=== PATIENT | female | born 1945 | race Caucasian/White ===

== ENCOUNTER → 2016-03-04 | Outpatient (CLI) | payer OTHER, MEDICARE ==
[2016-03-04 13:36] LABS: BASO % 0.3 %; BASO ABS # 0.02 K/uL (0-0.2); COMPLETE YES; EOS % 1.7 %; HEMATOCRIT 41.6 % (37-47); IG% 0.1 %; LYMPH % 25.1 %; LYMPH ABS # 1.91 K/uL (1.2-3.4); MEAN CELL VOLUME 85.6 fL (80-100); MEAN CORPUSCULAR HEMOGLOBIN 28.6 pg (25-34); MEAN CORPUSCULAR HGB CONC 33.4 g/dl (32-36); MEAN PLATELET VOLUME 8.7 fL (7.4-10.4); MONO % 7.1 %; NEUT % 65.7 %; PLATELET COUNT 304 K/uL (130-400); RED BLOOD COUNT 4.86 M/uL (4.2-5.4)
[2016-03-04 14:03] LABS: ALT/SGPT 25 U/L (12-78); BLOOD UREA NITROGEN 14 mg/dl (7-18); BUN/CREATININE RATIO 22.4 (10-20); CARBON DIOXIDE 27 mmol/L (21-32); CHLORIDE 101 mmol/L (98-107); CHOLESTEROL 229 mg/dl (0-200); CREATININE 0.63 mg/dl (0.60-1.20); GLUCOSE 134 mg/dl (70-99); POTASSIUM 4.3 mmol/L (3.5-5.1); SODIUM 139 mmol/L (136-145)
[2016-03-04 14:14] LABS: ALB/GLOB RATIO 0.9 (0.9-2); ALKALINE PHOSPHATASE 117 U/L (45-117); AST/SGOT 19 U/L (15-37); HDL CHOLESTEROL 76 mg/dl; LDL CHOLESTEROL CALCULATED 132 mg/dl; TRIGLYCERIDES 106 mg/dl (0-150); VERY LOW DENSITY LIPOPROT CALC 21 mg/dl
[2016-03-04 14:32] LABS: ESTIMATED AVERAGE GLUCOSE 146 mg/dl; HA1C FLAG Normal (Normal)
--- NOTE | 2016-03-08 14:00 | CODING QUERY MEDICAL NECESSITY ---
CQSUPPORTING DIAGNOSIS NEEDED A supporting diagnosis is required for the test/procedure performed on this patient in order for us to be reimbursed by the patient's insurance. Please provide a supporting diagnosis for the following test/procedure listed below next to the test name along with your signature. *If there is no additional diagnosis for this patient that would support the following test/procedure please document that below next to the test/procedure. Test(s)/Procedure(s) that require a supporting diagnosis: DOS 03/04/16 VITAMINS AND METABOLIC FUNCTION- VITAMIN D Provider Signature: Date: Thank you Gela Danielson Health Information Management Once completed, please kindly fax back to [phone] For questions please call [phone]
== END | disposition home or self-care (01) ==
LOC: C.LABBC 11:16
PROVIDERS: ATTEND Internal Medicine
DX: E11.9 Type 2 diabetes mellitus without complications (principal); L40.9 Psoriasis, unspecified

== ENCOUNTER → 2016-06-07 | Outpatient (CLI) | payer OTHER, MEDICARE ==
[2016-06-07 17:23] LABS: RATIO 17.6 mcg/mg (0-30.0)
[2016-06-08 05:56] LABS: ESTIMATED AVERAGE GLUCOSE 131 mg/dl; HA1C FLAG Normal (Normal)
== END | disposition home or self-care (01) ==
LOC: C.LABBC 13:02
PROVIDERS: ATTEND Nurse Practitioner Family
DX: E11.9 Type 2 diabetes mellitus without complications (principal)

== ENCOUNTER → 2016-09-12 | Outpatient (CLI) | payer OTHER, MEDICARE ==
[2016-09-12 17:24] LABS: ESTIMATED AVERAGE GLUCOSE 143 mg/dl; HA1C FLAG Normal (Normal)
== END | disposition home or self-care (01) ==
LOC: C.LABBC 14:32
PROVIDERS: ATTEND Nurse Practitioner Family
DX: E11.9 Type 2 diabetes mellitus without complications (principal)

== ENCOUNTER → 2016-11-12 | Outpatient (CLI) | payer OTHER, MEDICARE | END | disposition home or self-care (01) | LOC: C.LABBC 14:38 | PROVIDERS: ATTEND Internal Medicine | DX: G25.81 Restless legs syndrome (principal) ==

== ENCOUNTER → 2016-12-02 | Outpatient (CLI) | payer OTHER, MEDICARE ==
[2016-12-02 17:15] LABS: BLOOD UREA NITROGEN 18 mg/dl (7-18); BUN/CREATININE RATIO 25.5 (10-20); CALCIUM 9.7 mg/dl (8.5-10.1); CARBON DIOXIDE 27 mmol/L (21-32); CHLORIDE 102 mmol/L (98-107); GLUCOSE 129 mg/dl (70-99); POTASSIUM 4.2 mmol/L (3.5-5.1); SODIUM 140 mmol/L (136-145)
== END | disposition home or self-care (01) ==
LOC: C.LABBC 13:54
PROVIDERS: ATTEND Internal Medicine
DX: E78.5 Hyperlipidemia, unspecified (principal)

== ENCOUNTER → 2016-12-13 | Outpatient (CLI) | payer OTHER, MEDICARE ==
[2016-12-13 14:14] LABS: ESTIMATED AVERAGE GLUCOSE 140 mg/dl; HA1C FLAG Normal (Normal)
== END | disposition home or self-care (01) ==
LOC: C.LABBC 11:34
PROVIDERS: ATTEND Nurse Practitioner Family
DX: E11.9 Type 2 diabetes mellitus without complications (principal)

== ENCOUNTER → 2017-05-09 | Outpatient (CLI) | payer OTHER, MEDICARE ==
[2017-05-09 11:35] LABS: BASO % 0.1 %; BASO ABS # 0.01 K/uL (0-0.2); EOS % 2.9 %; HEMATOCRIT 33.1 % (37-47); HEMOGLOBIN 10.7 g/dL (12.0-16.0); IG# 0.02 K/uL (0.00-0.02); LYMPH % 24.7 %; LYMPH ABS # 1.71 K/uL (1.2-3.4); MEAN CELL VOLUME 82.1 fL (80-100); MEAN CORPUSCULAR HEMOGLOBIN 26.6 pg (25-34); MEAN CORPUSCULAR HGB CONC 32.3 g/dl (32-36); MEAN PLATELET VOLUME 8.2 fL (7.4-10.4); MONO % 8.2 %; MONO ABS # 0.57 K/uL (0.11-0.59); NEUT % 63.8 %; NEUT ABS # 4.41 K/uL (1.4-6.5); PLATELET COUNT 399 K/uL (130-400); RED CELL DISTRIBUTION WIDTH CV 13.9 % (11.5-14.5); RED CELL DISTRIBUTION WIDTH SD 42.1 fL (36.4-46.3); WHITE BLOOD COUNT 6.92 K/uL (4.8-10.8)
[2017-05-09 12:00] LABS: HEMOGLOBIN A1C 7.2 % (4.5-5.6)
[2017-05-09 12:09] LABS: ALBUMIN 3.5 gm/dl (3.4-5.0); ALKALINE PHOSPHATASE 166 U/L (45-117); ALT/SGPT 53 U/L (12-78); AST/SGOT 28 U/L (15-37); BLOOD UREA NITROGEN 17 mg/dl (7-18); CALCIUM 9.6 mg/dl (8.5-10.1); CARBON DIOXIDE 28 mmol/L (21-32); CHOLESTEROL 184 mg/dl (0-200); CREATININE 0.75 mg/dl (0.60-1.20); GLUCOSE 110 mg/dl (70-99); LDL CHOLESTEROL CALCULATED 107 mg/dl; POTASSIUM 4.3 mmol/L (3.5-5.1); SODIUM 137 mmol/L (136-145); TOTAL PROTEIN 7.5 gm/dl (6.4-8.2)
== END | disposition home or self-care (01) ==
LOC: C.LABPBG 10:14
PROVIDERS: ATTEND Nurse Practitioner Family
DX: E11.9 Type 2 diabetes mellitus without complications (principal); L40.50 Arthropathic psoriasis, unspecified; Z11.59 Encounter for screening for other viral diseases

== ENCOUNTER → 2017-05-21 | Outpatient (CLI) | payer OTHER, MEDICARE ==
[2017-05-21 17:22] LABS: BASO % 0.3 %; BASO ABS # 0.02 K/uL (0-0.2); EOS % 3.6 %; EOS ABS # 0.26 K/uL (0-0.5); HEMATOCRIT 33.4 % (37-47); HEMOGLOBIN 10.7 g/dL (12.0-16.0); IG# 0.03 K/uL (0.00-0.02); LYMPH % 28.3 %; LYMPH ABS # 2.02 K/uL (1.2-3.4); MEAN CELL VOLUME 82.3 fL (80-100); MEAN CORPUSCULAR HEMOGLOBIN 26.4 pg (25-34); MEAN PLATELET VOLUME 8.4 fL (7.4-10.4); MONO % 9.2 %; MONO ABS # 0.66 K/uL (0.11-0.59); NEUT % 58.2 %; NEUT ABS # 4.16 K/uL (1.4-6.5); PLATELET COUNT 465 K/uL (130-400); RED CELL DISTRIBUTION WIDTH CV 14.3 % (11.5-14.5); WHITE BLOOD COUNT 7.15 K/uL (4.8-10.8)
== END | disposition home or self-care (01) ==
LOC: C.LABBC 12:56
PROVIDERS: ATTEND Internal Medicine
DX: R74.8 Abnormal levels of other serum enzymes (principal)

== ENCOUNTER 2017-07-08 08:54 | Inpatient (IN) | payer OTHER, MEDICARE ==
[2017-06-18 14:27] VITALS: BMI 33.0
[2017-06-18 15:46] LABS: BASO % 0.2 %; BASO ABS # 0.02 K/uL (0-0.2); EOS % 4.1 %; EOS ABS # 0.34 K/uL (0-0.5); HEMATOCRIT 34.5 % (37-47); HEMOGLOBIN 11.3 g/dL (12.0-16.0); IG# 0.02 K/uL (0.00-0.02); LYMPH % 27.2 %; LYMPH ABS # 2.23 K/uL (1.2-3.4); MEAN CELL VOLUME 80.8 fL (80-100); MEAN CORPUSCULAR HEMOGLOBIN 26.5 pg (25-34); MEAN CORPUSCULAR HGB CONC 32.8 g/dl (32-36); MEAN PLATELET VOLUME 8.1 fL (7.4-10.4); MONO % 6.2 %; MONO ABS # 0.51 K/uL (0.11-0.59); NEUT % 62.1 %; NEUT ABS # 5.08 K/uL (1.4-6.5); PLATELET COUNT 382 K/uL (130-400); RED CELL DISTRIBUTION WIDTH CV 14.4 % (11.5-14.5); RED CELL DISTRIBUTION WIDTH SD 41.9 fL (36.4-46.3)
--- NOTE | 2017-06-18 15:47 | DIAGNOSTIC IMAGING REPORT ---
CHEST 2 VIEWS ROUTINE CLINICAL HISTORY: Preoperative chest COMPARISON STUDY: No previous studies for comparison. FINDINGS: The cardiac and mediastinal contours are normal. There is no evidence of focal pulmonary consolidation. There is no evidence of failure. No pleural effusions are visualized.[ IMPRESSION: No active disease in the chest. Electronically signed by: Cristian Nam M.D. 06/18/2017 3:46 PM Dictated Date/Time: 06/18/2017 3:46 PM
[2017-06-18 15:54] LABS: CALCIUM 9.7 mg/dl (8.5-10.1); CREATININE 0.78 mg/dl (0.60-1.20); POTASSIUM 3.8 mmol/L (3.5-5.1); PTT PATIENT 25.4 SECONDS (21.0-31.0)
--- NOTE | 2017-07-07 17:28 | HISTORY & PHYSICAL EXAMINATION ---
DATE OF ADMISSION: 07/08/2017 CHIEF COMPLAINT: Primary osteoarthritis of the left knee. HISTORY OF PRESENT ILLNESS: Kimberly is a pleasant 72-year-old female who has been dealing with a several year history of bilateral knee pain with the left knee worse than the right. X-rays and clinical examination were diagnostic for primary osteoarthritis of the left knee. After failing extensive conservative treatment, she has elected to proceed with a left total knee arthroplasty. PAST MEDICAL HISTORY: Significant for non-insulin dependent diabetes, hypertension. PAST SURGICAL HISTORY: Denies. ALLERGIES: None. MEDICATIONS: Include lisinopril, indapamide, metformin, glimepiride, and ropinirole. FAMILY HISTORY: Significant for glioblastoma of the brain. SOCIAL HISTORY: The patient is , has 1 child, never drinks, is mildly active and lives in a house with her , he was able to take care of her. REVIEW OF SYSTEMS: She complains of left knee pain. All other pertinent review of systems are negative. PHYSICAL EXAMINATION: GENERAL: She is awake, alert and oriented x3. She is in no apparent distress. She is very pleasant. HEENT: Pupils are equal, round and reactive to light. Extraocular motion is intact. Oral mucosa is pink and moist. HEART: Regular rate per radial pulse. LUNGS: Manuela symmetrically bilaterally with no audible breath sounds. ABDOMEN: Soft, nontender, nondistended. MUSCULOSKELETAL: On physical examination of the knee, she has a mild effusion on exam. She has good motion from 0 to 120 degrees. She has no instability. She has crepitus throughout range of motion. She has significant tenderness to palpation along the medial joint line and over the distal medial femoral condyle. IMAGING DATA: X-rays obtained of the knee do show advanced osteoarthritis with joint space narrowing and osteophyte formation and [id number] articulation. IMPRESSION: Advanced osteoarthritis of the left knee. PLAN: We will proceed with a Biomet Vanguard left total knee arthroplasty. Postoperatively, she will be kept in the hospital for postoperative medical management. I plan to use aspirin for DVT prophylaxis.
[~2017-07-08] VITALS: Ht 154.9 cm; Wt 78.5 kg
[2017-07-08] VITALS (8 sets, daily range): BP systolic 128–171; BP diastolic 72–84; PULSE 79–101; TEMP 36.3–36.7; O2SAT 95–100; Ht 154.9 cm; Wt 78.5 kg
[2017-07-08] MEDS: TRANEXAMIC ACID INJ 1,000 MG x 2 Bags IV SCH ×4 (06:30→11:02)
[~2017-07-08 08:54] MED LIST: ACETAMINOPHEN 500 MG TAB PO SCH; BUPIVACAINE 0.5 % 5 MG/1 ML PF 10ML VIAL ONE; CYAN100020 PO; FAMOTIDINE 20 MG TAB PO SCH; GABAPENTIN 300 MG CAP PO SCH; GLIM1TAB2 PO; INDA1TAB3 PO; IRON TABS PO; KRIL1CAP3 PO; LACTATED RINGER'S 1000ML 1,000 ML IV SCH; LACTATED RINGER'S 1000ML 500 ML IV SCH; LACTATED RINGER'S 1000ML IV SCH; LISI-729 PO; METF1000 PO; NAPR1TAB9 PO; ROPI0.25 PO; ROPIVACAINE 5MG/ML 30 ML 150 MG, BUPIVACAINE 0.5% MPF INJ 30 ML, EpINEphrine HCL INJ 0.... INFIL SCH; VITAMIN D PO
--- NOTE | 2017-07-08 09:07 | History & Physical Bridge Note ---
H&P Re-Evaluation Bridge Note: I have examined the patient, reviewed the History & Physical and in the interval since the performance of the History & Physical I have noted the following changes of clinical significance: No changes noted
[2017-07-08] MEDS ORDERED: PROPOFOL IV EMULSION 10 MG/ML 20 ML VIAL ONE (09:54)
[2017-07-08] MEDS ORDERED: PHENYLEPHRINE HCL INJ 10 MG/ML VIAL ONE (09:54)
[2017-07-08] MEDS ORDERED: EpHEDrine SULFATE 50MG/5ML SYR ONE (09:54)
[2017-07-08] MEDS ORDERED: LIDOCAINE HCL 2% 2 ML VIAL (20MG/ML) ONE (09:54)
[2017-07-08] MEDS ORDERED: MIDAZOLAM HCL 1 MG/ML 2ML VIAL ONE ×2 (09:55)
[2017-07-08] MEDS ORDERED: FENTANYL CITRATE INJ 50 MCG/1 ML 2 ML VIAL ONE (09:55)
[2017-07-08] MEDS: CEFAZOLIN 2000MG IV PUSH 15 ML IV SCH ×2 (11:02→11:23)
[2017-07-08] MEDS ORDERED: ORTHO JOINT ANESTHETIC ONE (11:08)
[2017-07-08] MEDS ORDERED: BACITRACIN 50000 UNIT VIAL ONE (11:09)
[2017-07-08] MEDS ORDERED: ONDANSETRON INJ 2 MG/ML 2 ML VIAL IV PRN ×2 (12:15→13:00)
[2017-07-08] MEDS ORDERED: FENTANYL CITRATE INJ 50 MCG/1 ML 2 ML VIAL IV PRN (12:15)
[2017-07-08] MEDS ORDERED: EpHEDrine SULFATE INJ 50 MG/ML AMP IV PRN (12:15)
[2017-07-08] MEDS ORDERED: ATROPINE SULFATE 0.1 MG/ML 5ML SYR IV PRN (12:15)
--- NOTE | 2017-07-08 12:57 | [facility] Post Operative Brief Note ---
Immediate Operative Summary Operative Date July 08, 2017. Pre-Operative Diagnosis Primary osteoarthritis of left knee Post-Operative Diagnosis Same as preop Procedure(s) Performed Left Total Knee Arthroplasty Surgeon Dr. Mcmanus Professor Of Languages Surgeon(s) Cinda Padilla PA-C Estimated Blood Loss 20cc Findings Consistent with Post-Op Diagnosis Specimens A: left knee bone and tissue Drains None Anesthesia Type MAC Spinal Regional Complication(s) none Disposition Disposition: Recovery Room / PACU
[2017-07-08] MEDS ORDERED: MAGNESIUM HYDROXIDE SUSP 30 ML UDC PO PRN (13:00)
[2017-07-08] MEDS ORDERED: GLUCOSE 10 TABS/TUBE PO PRN (13:00)
[2017-07-08] MEDS ORDERED: METOCLOPRAMIDE HCL INJ 5 MG/ML 2 ML VIAL IV PRN (13:00)
[2017-07-08] MEDS ORDERED: GLUCAGON FOR INJ 1 MG VIAL SQ PRN (13:00)
[2017-07-08] MEDS ORDERED: BISACODYL 10 MG SUPP PR PRN (13:00)
[2017-07-08] MEDS ORDERED: CARBOHYDRATES FOR HYPOGLYCEMIA PO PRN (13:00)
[2017-07-08] MEDS ORDERED: DEXTROSE 50% 50 ML SYR IV PRN (13:00)
[2017-07-08] MEDS ORDERED: GLUCOSE 40% GEL 15 GM TUBE PO PRN (13:00)
[2017-07-08] MEDS ORDERED: CEFAZOLIN IV 2,000 MG in DEXTROSE 5% 50ML 50 ML IV SCH (13:00)
[2017-07-08] MEDS ORDERED: SOD PHOSPHATE/SOD BIPHOSPHATE ENEMA 132 ML BTL PR PRN (13:00)
--- NOTE | 2017-07-08 13:29 | DIAGNOSTIC IMAGING REPORT ---
L KNEE 1 OR 2 VIEWS ROUTINE CLINICAL HISTORY: AP/LATERAL IN PACU LEFT KNEE joint replacement COMPARISON: None. DISCUSSION: Evidence for a total left knee arthroplasty. Good contact between prosthetic and underlying bone. Expected soft tissue postoperative change IMPRESSION: Anatomic alignment posttotal left knee arthroplasty. The above report was generated using voice recognition software. It may contain grammatical, syntax or spelling errors. Electronically signed by: Tommy Grace M.D. 07/08/2017 1:27 PM Dictated Date/Time: 07/08/2017 1:27 PM
--- NOTE | 2017-07-08 13:42 | OPERATIVE REPORT ---
DATE OF OPERATION: 07/08/2017 PREOPERATIVE DIAGNOSIS: Primary osteoarthritis of the left knee. POSTOPERATIVE DIAGNOSIS: Same. PROCEDURE: Left total knee arthroplasty. SURGEON: Dr. Trace Mcmanus. PILE DRIVING SUPERVISOR: Kamran Padilla PA-C, who assistance was necessary for retraction and closure. ANESTHESIA: Spinal with a left adductor nerve block. COMPLICATIONS: None. CONDITION: Stable to PACU. IMPLANTS USED: I used a Biomet Vanguard left total knee arthroplasty with a size 60 femur, a 71 tibia, a size 10 posterior stabilized poly and a 31 patella. All components were cemented with Palacos-G cement. INDICATIONS: Kimberly is a very pleasant 72-year-old female who presented to my office with chronic increasing left knee pain. X-rays and clinical examination were diagnostic for primary osteoarthritis of the left knee. After failing conservative treatment, she elected to undergo a left total knee arthroplasty. OPERATION AND FINDINGS: On 07/08/2017, she arrived at [facility] for the above procedure. She was seen in the preoperative holding area and the operative extremity was identified and signed. She was given a preoperative antibiotic and a spinal anesthetic and a left adductor nerve block. She was taken back to the operating room, laid on the table in supine position and given basic sedation. The left knee was then prepped and draped in sterile fashion. Time-out was done and the patient and operative extremity was properly identified. On preoperative physical examination, her range of motion was 10-90 degrees. She had hard end points and range. A midline incision was made directly over the patella. Dissection was taken down to the extensor mechanism and a medial parapatellar arthrotomy was used. The medial retinaculum was released and the synovium in the suprapatellar pouch was removed. A small portion of the fat pad was removed, but the majority remained. The knee was then flexed. A drill was sent down the center of the femoral canal followed by an intramedullary jarrett. Off that jarrett, a distal femoral cutting block was placed. A 12 mm was resected off the distal femur at 5 degrees of valgus. A posterior referencing guide was then used and the femur measured to be a size 60. Two drill holes were placed in line with the transepicondylar access at 3 degrees. A 4-in-1 cutting block was then impacted into place. Anterior, posterior and chamfer cuts were then made. The box cutting guide was then impacted into place and the box was resected for the posterior stabilizing component. The proximal tibia was then exposed. A drill was sent down the center of the tibial canal followed by an intramedullary jarrett. Off that jarrett, a proximal tibial resection guide was placed. A 4 mm was resected off the low medial side. The tibia was then measured to be a size 71 set in the appropriate rotation, drilled and then punched. The posterior aspect of the knee was opened up. Time was spent removing any meniscus remnants as well as any posterior osteophytes. Trial components were then placed. The knee was brought through a full range of motion and felt stable with a size 10 posterior stabilized poly. The patella was then everted and 8 mm was resected off the posterior aspect of the patella. The patella measured to be a size 31 and 3 peg holes were drilled. A trial was placed, the knee was flexed and felt stable. Trial components were then removed. Surrounding soft tissues were injected with 100 mL of an orthopedic pain control cocktail. The final components were then impacted into place with Palacos-G cement. A size 10 posterior stabilized poly was then snapped into place and the anterior bar was locked. The wound was then irrigated with 3 liters normal saline solution with bacitracin. The tourniquet was deflated and hemostasis was controlled. The extensor mechanism was closed with #2 FiberWire suture in the superior medial aspect and #1 Vicryl, both proximally and distally. Skin was closed with 2-0 Vicryl, 3-0 V-Loc suture and true. She was then placed in a soft compressive dressing and transferred to a hospital bed and taken to postanesthesia care unit in stable condition. She tolerated the procedure well. I attest to the content of the Intraoperative Record and any orders documented therein. Any exception s are noted below.
--- NOTE | 2017-07-08 14:42 | Discharge Instructions ---
Discharge Instructions Date of Service July 08, 2017. Admission Reason for Admission: Left Knee Degenerative Joint Disease Discharge Discharge Diagnosis / Problem: Left Total Knee Discharge Goals Goal(s): Decrease discomfort, Improve function Activity Recommendations Activity Limitations: as noted below . Instructions / Follow-Up Instructions / Follow-Up Activity and Therapy Recommendations: * If you are using [facility] then Physical Therapy will be provided until they feel you are ready to start Outpatient Physical Therapy. If you are not using a Home Health agency then Outpatient Physical Therapy should start about 3-5 days from your day of surgery. Therapy will last about 6-10 weeks * It is important not to put a pillow under your knee when you are relaxing or sleeping. It is just as important to make sure you are getting your knee perfectly straight as it is to regain your knee bend. * You were shown a series of exercises in the hospital. Do these exercises three times each day including the exercises you were shown in physical therapy. * Get up and walk several times each day. For the first four weeks, try not to stand or walk for more than one hour at a time. If you do stand or walk for more than one hour, you will not hurt anything, but your leg will likely swell. * As you feel comfortable, you may change from the walker or crutches to a cane and then to independent walking. Medications: * Narcotic You will likely be sent home from the hospital with a prescription for the narcotic pain medication that worked best throughout your stay. * Aspirin Most patients will be required to take Aspirin 325mg twice a day for 6 weeks after surgery. This is obtained [id number] and a prescription is not necessary. * Other medications may be prescribed for specific circumstances. If you have any questions, please call the office at . * Resume previous home medications unless otherwise instructed TEDs/Elastic Stockings: The white elastic stockings help limit swelling and prevent blood clots from forming in your legs.~ The more you wear them, the more they work. Wear them for six weeks. Dressing Care: If the incision is not draining then you may leave the true open to air. If there is a little bit of drainage or if the true are getting stuck on your clothing then cover the incision with a dry dressing. The true will be removed at your 2 week follow-up appointment. Showering: You may shower 5 days from the day of surgery. Let the soapy shower water run over the true and pat them dry. Do not scrub or soak the incision. Things To Watch For: * Drainage from the incision site that occurs more than one week after your surgery. * Increased redness at the incision site. * Fever above 102 degrees Fahrenheit. * Unusual chest pain or shortness of breath. * Call [facility] at with any of the above problems Follow-Up Visit: Follow-up with Dr. Mcmanus 2 weeks after your day of surgery. An appointment was probably scheduled when you signed-up for surgery in the office. If you have any questions call Office Instructions: More detailed instructions as well as Frequently Asked Questions were provided in a folder by our office when you signed-up for surgery. Please review these instructions when you get home. If you have any further questions or concerns, please feel free to call the office at [phone] Current Hospital Diet Patient's current hospital diet: Regular Diet Discharge Diet Recommended Diet: Regular Diet Procedures Procedures Performed: Left Total Knee Arthroplasty Pending Studies Studies pending at discharge: no Laboratory Results Hemoglobin A1c Test 05/09/17 10:18 Range/Units Estimated Average Glucose 160 mg/dl Hemoglobin A1c 7.2 H 4.5-5.6 % Lipid Panel Test 05/09/17 10:18 Range/Units Triglycerides Level 134 0-150 mg/dl Cholesterol Level 184 0-200 mg/dl HDL Cholesterol 50 mg/dl Cholesterol/HDL Ratio 3.7 LDL Cholesterol, Calculated 107 mg/dl Medical Emergencies . Who to Call and When: Medical Emergencies: If at any time you feel your situation is an emergency, please call 911 immediately. . Non-Emergent Contact Non-Emergency issues call your: Surgeon Call Non-Emergent contact if: wound has increased drainage, wound has increased redness . "Provider Documentation" section prepared by Trace Mcmanus. .
--- NOTE | 2017-07-08 14:47 | Anesthesiology Progress Note ---
Anesthesia Post Op Note Date & Time July 08, 2017 at 14:47 Vital Signs Pain Intensity: 0 Vital Signs Past 12 Hours Date Time Temp Pulse Resp B/P (MAP) Pulse Ox O2 Delivery O2 Flow Rate FiO2 07/08/17 14:30 36.4 84 18 154/75 (101) 100 Nasal Cannula 2.0 07/08/17 14:15 36.5 71 23 120/66 100 Nasal Cannula 2 07/08/17 14:05 79 21 125/65 100 Nasal Cannula 2 07/08/17 13:55 77 16 124/64 100 Nasal Cannula 2 07/08/17 13:45 76 19 135/68 100 Nasal Cannula 2 07/08/17 13:35 77 17 135/69 100 Nasal Cannula 2 07/08/17 13:25 84 20 137/76 100 Nasal Cannula 2 07/08/17 13:15 88 17 132/68 99 Nasal Cannula 2 07/08/17 13:05 36.7 93 24 129/61 96 Nasal Cannula 2 07/08/17 09:49 36.7 101 20 171/84 99 Room Air Notes Mental Status: alert / awake / arousable, participated in evaluation Pt Amnestic to Procedure: Yes Nausea / Vomiting: adequately controlled Pain: adequately controlled Airway Patency, RR, SpO2: stable & adequate BP & HR: stable & adequate Hydration State: stable & adequate Neuraxial Anesthesia: was administered, sensory block is resolving Anesthetic Complications: no major complications apparent
[2017-07-08] MEDS ORDERED: PHARMACY GLYCEMIC MGMT CONSULT PRN (15:03)
--- NOTE | 2017-07-08 15:14 | Pharmacy Progress Note ---
Glycemic Control Intl Consult Date of Service July 08, 2017. Scope Glycemic Pharmacist consulted by Dr Mcmnaus on 07/08/17 for glycemic control and to write orders per [facility] inpatient glycemic control protocol Objective Weight (Kilograms): 78.500 Accuchecks BSG (last 24hrs): Test 07/08/17 09:21 07/08/17 13:17 Bedside Glucose 167 mg/dl (70-90) 160 mg/dl (70-90) HbA1c 7.2% on 05/09/17 Recent Pertinent Medications Outpatient Anti-diabetic Regimen: * Glimepiride 3mg PO BIDM * Metformin 1,000mg PO BIDM Risk Factors for Insulin Resistance: * Steroids {ortho mix} * Recent Surgery * Diet Assessment & Plan ASSESSMENT: * 72yo T2DM female with adequate degree of outpatient control per recent A1c * Pt is maintained on oral antidiabetic agents as an outpatient * Oral agents are not recommended for inpatient use d/t drug interactions, changing PO intake, and difficulty titrating for acute hyper/hypoglycemia. ADA recommends re-initiating outpatient oral agents 1-2 days prior to discharge if/ when appropriate if they were held on admission. * Will hold oral agents for admission and utilize SQ basal bolus insulin regimen which is the recommended regimen for inpatient glycemic control. * Will initiate weight based insulin dosing for insulin irena patient and titrate based on BSG trends. * Will resume metformin at least 24hrs post-operatively, after PO intake is adequate and renal function is assessed. * Will hold glimepiride until discharge secondary to high risk of hypoglycemia with sulfonylureas in house PLAN FOR INPATIENT GLYCEMIC CONTROL: SQ basal bolus insulin regimen based on weight and stress for insulin naive patient. Will titrate dosing to maintain BSG <200 mg/dl (ideally <150 mg/dl) * Holding outpatient oral diabetes medications * Basal insulin * NPH 15 units SQ x 1 dose today with dinner * Will re-dose tomorrow morning if BSG >150 mg/dl and oral agents not resumed until evening * Bolus insulin * Novolog per scale ACHS or Q6hrs while NPO * Goal Range: Low 110 mg/dL - High 140 mg/dL * Correction Factor: 30 mg/dL/unit * Nutritional / Prandial insulin per carb ratio of 1 unit per 10 grams CHO consumed * Please note that the plan above was derived based on current level of insulin resistance and hospital stress. These recommendations are appropriate for inpatient admission only. Plan of care upon discharge will need to be reassessed to avoid potential outpatient hypo/hyperglycemia. Thank you.
[2017-07-08] MEDS: SODIUM CHLORIDE 0.9% 1000ML 1,000 ML IV SCH (15:59)
[2017-07-08] MEDS ORDERED: NovoLIN-N (NPH) PER UNIT CHARGE SQ SCH (17:15)
[2017-07-08] MEDS: KETOROLAC TROMETHAMINE 15 MG/ML VIAL IV. SCH (17:45)
[2017-07-08] MEDS: MoRPHine SULFATE 4 MG/ML 1 ML CARP\\VIAL IV PRN (17:58)
[2017-07-08] MEDS: INSULIN ASPART 100 UNITS/ML 3 ML PEN SC SCH ×2 (19:21→20:58)
[2017-07-08] MEDS: OXYCODONE HCL IR 5 MG TAB (IMMEDIATE RELEASE) PO PRN (19:27)
[2017-07-08] MEDS: CEFAZOLIN IV 2,000 MG in SYRINGE 0 ML IV SCH (19:30)
[2017-07-08] MEDS: ASPIRIN 325 MG ECTAB PO SCH (20:34)
[2017-07-08] MEDS: ROPINIROLE HCL 0.25 MG TAB PO SCH (20:35)
[2017-07-08] MEDS: SENNA 8.6 MG TAB PO SCH (20:35)
[2017-07-08] MEDS: DOCUSATE SODIUM 100 MG CAP PO SCH (20:35)
[2017-07-08] MEDS: ACETAMINOPHEN 500 MG TAB PO SCH (21:00)
[2017-07-09 00:05] VITALS: O2SAT 99
[2017-07-09] MEDS: KETOROLAC TROMETHAMINE 15 MG/ML VIAL IV. SCH ×5 (00:16→23:27)
[2017-07-09] MEDS: SODIUM CHLORIDE 0.9% 1000ML 1,000 ML IV SCH ×2 (01:45→12:08)
[2017-07-09 03:18] VITALS: BP 131/71; PULSE 78; TEMP 36.5; O2SAT 96
[2017-07-09] MEDS: CEFAZOLIN IV 2,000 MG in SYRINGE 0 ML IV SCH (04:39)
[2017-07-09] MEDS: OXYCODONE HCL IR 5 MG TAB (IMMEDIATE RELEASE) PO PRN ×3 (05:49→21:18)
[2017-07-09] MEDS: ACETAMINOPHEN 500 MG TAB PO SCH ×3 (05:52→21:18)
[2017-07-09 07:25] VITALS: BP 123/70; PULSE 82; TEMP 36.6; O2SAT 97
[2017-07-09 08:07] LABS: HEMATOCRIT 26.2 % (37-47); HEMOGLOBIN 8.6 g/dL (12.0-16.0); MEAN CELL VOLUME 80.6 fL (80-100); MEAN CORPUSCULAR HEMOGLOBIN 26.5 pg (25-34); MEAN CORPUSCULAR HGB CONC 32.8 g/dl (32-36); MEAN PLATELET VOLUME 7.9 fL (7.4-10.4); PLATELET COUNT 296 K/uL (130-400); RED CELL DISTRIBUTION WIDTH CV 14.6 % (11.5-14.5); RED CELL DISTRIBUTION WIDTH SD 42.8 fL (36.4-46.3); WHITE BLOOD COUNT 7.27 K/uL (4.8-10.8)
[2017-07-09] MEDS: MoRPHine SULFATE 4 MG/ML 1 ML CARP\\VIAL IV PRN ×3 (08:33→16:03)
[2017-07-09] MEDS: LISINOPRIL 5 MG TAB PO SCH (08:36)
[2017-07-09] MEDS: ASPIRIN 325 MG ECTAB PO SCH ×2 (08:36→21:17)
[2017-07-09] MEDS: INDAPAMIDE 1.25 MG TAB PO SCH (08:36)
[2017-07-09] MEDS: DOCUSATE SODIUM 100 MG CAP PO SCH ×2 (08:36→21:17)
[2017-07-09] MEDS: MULTIVITAMIN TAB PO SCH (08:36)
[2017-07-09 08:44] LABS: CALCIUM 8.4 mg/dl (8.5-10.1); CREATININE 0.91 mg/dl (0.60-1.20)
[2017-07-09] MEDS ORDERED: NovoLIN-N (NPH) PER UNIT CHARGE SQ SCH (09:00)
[2017-07-09] MEDS: INSULIN ASPART 100 UNITS/ML 3 ML PEN SC SCH ×4 (09:28→21:28)
--- NOTE | 2017-07-09 11:18 | Pharmacy Progress Note ---
Pharmacy Glycemic Short Note 2 Date of Service July 09, 2017. OUTPATIENT ANTIDIABETIC REGIMEN: * Glimepiride 3mg PO BIDM * Metformin 1,000mg PO BIDM ASSESSMENT: * 72yo T2DM female with adequate degree of outpatient control per recent A1c. POD # 1 L knee surgery. * Pt is maintained on oral antidiabetic agents as an outpatient. SQ basal bolus insulin regimen was initiated yesterday based on weight and stress for insulin naive patient. Will titrate dosing to maintain BSG <200 mg/dl (ideally <150 mg/ dl). * Fasting BSG of 174 mg/dL is above goal. Patient was ordered a second dose of NPH for this morning. * Bolus parameters were tightened this am secondary to post prandial elevations on 07/10, however, this change overcorrected patient (BSG 174 -> 125). Therefore , I will resume previous parameters. Less prandial insulin should be utilized since steroid effect has dissipated. PLAN FOR INPATIENT GLYCEMIC CONTROL: * Resume home medications * metformin 1000 mg PO BID - starting with dinner today * glimepiride 3 mg PO BID with meals - starting with breakfast on 07/10 * Basal insulin * NPH 15 units SQ this AM * Bolus insulin * Novolog per scale ACHS or Q6hrs while NPO * Goal Range: Low 110 mg/dL - High 140 mg/dL * Correction Factor: 30 mg/dL/unit * Nutritional / Prandial insulin per carb ratio of 1 unit per 10 grams CHO consumed --> carb ratio will be removed once glimepiride is resumed PLAN FOR DISCHARGE: * Adequate outpatient glycemic control evidenced by A1c of 7.2 % (05/09/17) * Recommend continuing oral anti-diabetic regimen on discharge (metformin + glimepiride)
[2017-07-09 11:31] VITALS: BP 121/67; PULSE 89; TEMP 36.6; O2SAT 98
[2017-07-09 15:27] VITALS: BP 166/81; PULSE 105; TEMP 36.9; O2SAT 96
[2017-07-09] MEDS: METFORMIN HCL 500 MG TAB PO SCH (17:38)
[2017-07-09] MEDS ORDERED: RXC5 PO (18:06)
[2017-07-09] MEDS ORDERED: ASPEC325 PO (18:06)
--- NOTE | 2017-07-09 18:58 | PROGRESS NOTE ---
DATE: 07/09/2017 CHIEF COMPLAINT: Status post left total knee arthroplasty postoperative day #1. PROGRESS: Kimberly was seen and examined at bedside today. Unfortunately, she is having a lot of soreness in that knee. She is little more sore than she was expecting. She was up and ambulating well with physical therapy, going around the nurses' station. She has no other complaints. PHYSICAL EXAMINATION: LEFT KNEE: She is lying with her knee in full extension. She has active dorsiflexion and plantarflexion of the left ankle and sensation is intact. The dressing is clean and dry. LABORATORY DATA: She has an H and H today of 8.6 and 26.2. Her glucose is 125. Her vital signs are all stable on room air. She is a little hypertensive and she is voiding on her own. X-rays postoperatively of the left knee showed the prosthesis to be in anatomic alignment without any evidence of fracture, dislocation, or loosening. IMPRESSION: Status post left total knee arthroplasty postoperative day #1. PLAN: At this point, she is doing well and happy with her progress. She is on aspirin for deep vein thrombosis prophylaxis. We will continue with oxycodone for pain. We will likely discharge her to home tomorrow with [facility].
[2017-07-09] MEDS: ROPINIROLE HCL 0.25 MG TAB PO SCH (21:36)
[2017-07-09] MEDS: SENNA 8.6 MG TAB PO SCH (21:36)
[2017-07-09 22:56] VITALS: BP 112/64; PULSE 93; TEMP 37.2; O2SAT 94
[2017-07-10] MEDS: OXYCODONE HCL IR 5 MG TAB (IMMEDIATE RELEASE) PO PRN ×2 (04:19→10:39)
[2017-07-10] MEDS: KETOROLAC TROMETHAMINE 15 MG/ML VIAL IV. SCH (05:14)
[2017-07-10] MEDS: ACETAMINOPHEN 500 MG TAB PO SCH (05:14)
[2017-07-10 06:10] VITALS: BP 151/71; PULSE 103; TEMP 37.4; O2SAT 91
--- NOTE | 2017-07-10 06:41 | PROGRESS NOTE ---
DATE: 07/10/2017 CHIEF COMPLAINT: Status post left total knee arthroplasty postop day #2. SUBJECTIVE: Kimberly was seen and examined at bedside today. Overall, she is doing fairly well. She still has a lot of pain in the knee. She just recently got an injection of morphine. She seems to be tolerating the pain okay. She worked well yesterday with physical therapy and has no complaints. OBJECTIVE: On examination of the left knee, the dressing has been changed, and the incision is open to air. She has active dorsiflexion and plantar flexion of her left ankle. Sensation is intact. IMPRESSION: Status post left total knee arthroplasty postop day #2. PLAN: At this point, she is doing fairly well. We are still working on pain control. Will continue using oxycodone as needed for pain. She will be seen by physical therapy this morning. She is on aspirin for DVT prophylaxis. She is planning to go home later this morning after therapy.
[2017-07-10] MEDS ORDERED: GLIMEPIRIDE 2 MG TAB PO SCH (08:30)
[2017-07-10] MEDS: MULTIVITAMIN TAB PO SCH (08:34)
[2017-07-10] MEDS: LISINOPRIL 5 MG TAB PO SCH (08:34)
[2017-07-10] MEDS: INDAPAMIDE 1.25 MG TAB PO SCH (08:34)
[2017-07-10] MEDS: METFORMIN HCL 500 MG TAB PO SCH (08:34)
[2017-07-10] MEDS: INSULIN ASPART 100 UNITS/ML 3 ML PEN SC SCH (08:40)
[2017-07-10] MEDS: ASPIRIN 325 MG ECTAB PO SCH (08:59)
[2017-07-10] MEDS: DOCUSATE SODIUM 100 MG CAP PO SCH (08:59)
[2017-07-10 10:08] VITALS: BP 151/71; PULSE 103; TEMP 37.4; O2SAT 91
--- NOTE | 2017-07-10 14:48 | DISCHARGE SUMMARY ---
DISCHARGE DIAGNOSIS: Primary osteoarthritis of the left knee. PROCEDURE: Left total knee arthroplasty on 07/08/[address] Trace Mcmanus. DISCHARGE INSTRUCTIONS: 1. Aspirin 325 mg twice a day for 6 weeks. 2. Oxycodone 5-10 mg every 4 hours as needed for pain. 3. Vitamin B12 5000 mg daily. 4. Glimepiride 3 mg twice a day. 5. Lozol 1.25 mg daily. 6. Krill oil daily. 7. Zestril 5 mg daily. 8. Glucophage 1000 mg twice a day. 9. Aleve 2 tabs as needed. 10. Requip 0.25 mg daily. 11. May shower 5 days from the day of surgery. 12. Follow up with Dr. Mcmanus in 2 weeks. 13. Call the office of Dr. Mcmanus with any questions or concerns. HOSPITAL COURSE: Kimberly is a pleasant 72-year-old female who presented to my office with complaints of chronic increasing left knee pain. X-rays and clinical examination were diagnostic for advanced osteoarthritis of the left knee. After failing conservative treatment, she elected to undergo a left total knee arthroplasty. On 07/08/2017, she arrived at [facility] and underwent a left total knee arthroplasty without complication. She had a spinal anesthetic and a left adductor nerve block. Postoperatively, she was started on aspirin for DVT prophylaxis and discharged to general orthopedic floor. Her hospital course was uneventful. On postop day #1, her H and H was stable at 8.6 and 26.2. She was up and ambulating well with physical therapy. She was having a lot of pain in the knee, but the IV morphine and oxycodone were helping. On postop day #2, she was doing okay. She was still having some pain in the knee, but she was participating well with physical therapy. Her vital signs were stable and she was subsequently discharged to home with [facility] and the above instructions.
== END 2017-07-10 11:35 | disposition home health service (06) | DRG 470 ==
LOC: C.ACU 08:54 → C.MSN 11:02 → ENRESERV 13:42
PROVIDERS: ADMIT Orthopaedic Surgery; ATTEND Orthopaedic Surgery
PROC: 0SRD0J9 Replacement of Left Knee Joint with Synthetic Substitute, Cemented, Open Approach (ICD-10-PCS; principal; 2017-07-08 11:15)
DX: M17.12 Unilateral primary osteoarthritis, left knee (principal); M25.462 Effusion, left knee; I10 Essential (primary) hypertension; E11.42 Type 2 diabetes mellitus with diabetic polyneuropathy; E78.5 Hyperlipidemia, unspecified; D86.9 Sarcoidosis, unspecified; L40.50 Arthropathic psoriasis, unspecified; G25.81 Restless legs syndrome; Z79.84 Long term (current) use of oral hypoglycemic drugs; Z79.899 Other long term (current) drug therapy

== ENCOUNTER 2021-07-19 14:48 | Inpatient (IN) ==
[~2021-07-19 14:48] MED LIST changes: -ACETAMINOPHEN 500 MG TAB PO SCH; -BUPIVACAINE 0.5 % 5 MG/1 ML PF 10ML VIAL ONE; -CYAN100020 PO; -FAMOTIDINE 20 MG TAB PO SCH; -GABAPENTIN 300 MG CAP PO SCH; -GLIM1TAB2 PO; -INDA1TAB3 PO; -IRON TABS PO; -KRIL1CAP3 PO; -LACTATED RINGER'S 1000ML 1,000 ML IV SCH; -LACTATED RINGER'S 1000ML 500 ML IV SCH; -LACTATED RINGER'S 1000ML IV SCH; -LISI-729 PO; -METF1000 PO; -NAPR1TAB9 PO; +PROPOFOL IV EMULSION 10 MG/ML 100 ML VIAL IV ONE; +PROPOFOL IV EMULSION 10 MG/ML 20 ML VIAL IV ONE; +RAPID SEQUENCE INDUCTION BAG ONE; -ROPI0.25 PO; -ROPIVACAINE 5MG/ML 30 ML 150 MG, BUPIVACAINE 0.5% MPF INJ 30 ML, EpINEphrine HCL INJ 0.... INFIL SCH; -VITAMIN D PO
[2021-07-19] MEDS: propofoL 1,000 MG/100 ML VIAL IV SCH ×2 (15:02→23:49)
[2021-07-19] MEDS ORDERED: STAT IV Infusion **Titration per Protocol STA ×2 (15:07→19:45)
--- NOTE | 2021-07-19 15:13 | Emergency Department Note ---
History of Present Illness General Chief complaint: Unresponsive Source: family () and EMS Limitations: altered mental status and clinical acuity History of Present Illness Provider complaint: Unresponsive Onset (ago): hour(s) Location: head Pain Consistency: + constant This is a 76-year-old female who was sent over from the cancer center by EMS due to altered mental status and respiratory depression. I did obtain history from the directory carrier as well as the patient's . The patient has a history of ovarian cancer without metastases. She was receiving her third dose of carboplatin today. Shortly after starting the medication the patient became unr esponsive. She developed respiratory depression. When paramedics arrived her O2 saturation was 80%. They attempted to assist breathing with [id number] but O2 saturations only came up to 89%. She was tachycardic and hypertensive at the time. The directory carrier did call for etomidate via medical command in order to intubate the patient. I did receive the phone call and gave medical command and ordered 20 mg of etomidate IV. She was successfully intubated and sedated with 100 of fentanyl and 2.5 of Versed. According to her she had no unusual complaints today other than feeling somewhat tired. He did notice that she seemed a bit short of breath when she was walking around but otherwise had no complaints. He states that she has not been having any fevers or cough or cold symptoms or sore throat. She has had no vomiting, diarrhea or change in colostomy output. She has had no complaints of abdominal pain or chest pain or urinary symptoms. He does state that she is a full code. Her states that after receiving 3 hours of chemotherapy she seemed okay but about 10 m inutes into receiving carboplatin the patient stated that she had difficulty breathing and was pointing to her throat. The patient's states that they gave her Benadryl which did not help and possibly made it worse as well as some other drugs he is not sure of. They were concerned that she may have had a allergic reaction. He also states that she did receive steroids prior to going to chemotherapy and her blood sugar was over 300 this morning. Home Medications Medication Instructions Recorded Confirmed Type cholecalciferol (vitamin D3) 25 1,000 units PO 2XWK 11/17/18 07/19/21 History mcg (1,000 unit) tablet cyanocobalamin (vitamin B-12) 1,000 mcg PO QPM tab 11/17/18 07/19/21 History 1,000 mcg tablet,extended release krill 1 cap PO QPM 11/17/18 07/19/21 History qmm-qf-[id number]-qlt-vgidkhcyjbsmf 300 mg-90 mg-24 mg-50 mg capsule (krill oil) ropinirole 0.25 mg tablet 0.5 mg PO QPM #180 tab 01/22/21 07/19/21 Rx metformin 500 mg tablet,extended 1,000 mg PO BID #360 tab 03/12/21 07/19/21 Rx release 24 hr lisinopril 20 mg tablet 20 mg PO QAM 03/21/21 07/19/21 History Accu-Chek Guide test strips (blood #100 ea NS 06/01/21 07/19/21 Rx sugar diagnostic) glimepiride 2 mg tablet 2 mg PO BID tab 06/04/21 07/19/21 History melatonin 3 mg tablet 9 mg PO HS 06/12/21 07/19/21 History Allergies Allergy/AdvReac Type Severity Reaction Status Date / Time oxycodone AdvReac Intermediate "Sick" Verified 07/19/21 16:13 feeling ("I can't eat or go the bathroom") tramadol AdvReac Intermediate "Sick" Verified 07/19/21 16:13 feeling ("I can't eat or go the bathroom") Past Med/Surg History Medical History Chronic insomnia CKD (chronic kidney disease), stage III Colostomy in [address] Dyslipidemia HTN (hypertension) Iron deficiency anemia HX [place] [facility] [place] of left knee Osteoarthritis of right knee Pelvic mass OVARIAN CANCER Peripheral neuropathy Psoriasis Psoriatic arthritis Restless legs syndrome Right knee DJD Type 2 diabetes mellitus Surgical History H/O bilateral cataract extraction H/O colonoscopy 03/2021 History of left knee replacement History of surgery excision ovarian cancer/pelvic mass/ diverting colostomy [facility] [place] Roque.- 04/10/[place] [facility] [place] of tooth extraction Port-A-Cath in place (06/14/21) Insertion Access Port left subclavian vein with Fluoroscopy(Left) - Fracisco Lyles DO Family History Mother Brain tumor Father Kidney disease Grandmother Diabetes Other No family history of adverse response to anesthesia Denies family history of Ovarian cancer Prostate cancer Myocardial infarction Breast cancer Lung cancer Colorectal cancer Social History Smoking Status: Unknown if ever smoked Second Hand Exposure: No; Hx Alcohol Use: No Hx Substance Use: No Preferred Language: Urdu Communication Ability: Effective Visual Impairment: No Limitations Hearing Ability: Normal Broomcorn Grader Required: No Beliefs That Will Affect Care: None marital status: Current Living Situation: Spouse current occupational status: retired How many Children do You have: 1 Feels Safe at Home: Yes Childhood Exposure to Second-Hand Smoke: No caffeine: Yes Dental Care, Regularly: Yes Physical Activity Frequency: Does not Exercise Seatbelt Use: always Sunscreen Use: Yes Do you think of yourself as: straight/heterosexual Assistive Devices: Cane and Denture - Upper Review of Systems See HPI for pertinent positives & negatives. Unobtainable due to endotracheal tube Physical Exam Vital Signs Vital Signs - 24 hr 07/19/21 14:49 07/19/21 15:07 07/19/21 16:01 Temperature 36.8 C Temperature Source Rectal Pulse Rate 105 H Pulse Rate [Apical] 98 H Pulse Rhythm Pulse Rhythm [Apical] Regular Respiratory Rate 16 16 16 Respiratory Effort / Characteristics Respiratory Pattern Regular Regular Blood Pressure 154/88 H Blood Pressure [Right Arm] 138/73 Blood Pressure Mean 110 Blood Pressure Mean [Right Arm] 94 Blood Pressure Position Lying Blood Pressure Position [Right Arm] Lying Pulse Oximetry 99 98 97 Oxygen Delivery Method Mechanical Vent Mechanical Vent Fraction of Inspired Oxygen 40 40 40 SaO2/FiO2 Ratio 247 242 Sepsis Recent Fever Within 48 Hours No Sepsis New/Unexplained Change in Mental Status No Sepsis Action Taken by Nursing No Action Required End-Tidal CO2 44 End Tidal CO2 (18-54mmHg) 35 07/19/21 16:03 07/19/21 16:48 07/19/21 17:01 Temperature Temperature Source Pulse Rate 100 H Pulse Rate [Apical] 95 H 93 H Pulse Rhythm Regular Pulse Rhythm [Apical] Regular Regular Respiratory Rate 16 16 16 Respiratory Effort / Characteristics Respiratory Pattern Regular Regular Blood Pressure Blood Pressure [Right Arm] 144/75 H 130/72 Blood Pressure Mean Blood Pressure Mean [Right Arm] 98 91 Blood Pressure Position Blood Pressure Position [Right Arm] Lying Lying Pulse Oximetry 96 96 97 Oxygen Delivery Method Mechanical Vent Mechanical Vent Mechanical Vent Fraction of Inspired Oxygen 40 40 40 SaO2/FiO2 Ratio 240 240 242 Sepsis Recent Fever Within 48 Hours Sepsis New/Unexplained Change in Mental Status Sepsis Action Taken by Nursing End-Tidal CO2 End Tidal CO2 (18-54mmHg) 34 36 07/19/21 17:15 07/19/21 17:33 07/19/21 17:49 Temperature Temperature Source Pulse Rate Pulse Rate [Apical] 95 H 94 H 94 H Pulse Rhythm Pulse Rhythm [Apical] Regular Regular Regular Respiratory Rate 16 16 16 Respiratory Effort / Characteristics Mechanically Ventilated Mechanically Ventilated Respiratory Pattern Regular Blood Pressure Blood Pressure [Right Arm] 134/79 137/82 144/85 H Blood Pressure Mean Blood Pressure Mean [Right Arm] 97 100 104 Blood Pressure Position Blood Pressure Position [Right Arm] Lying Lying Lying Pulse Oximetry 99 99 99 Oxygen Delivery Method Mechanical Vent Mechanical Vent Mechanical Vent Fraction of Inspired Oxygen 40 40 40 SaO2/FiO2 Ratio 247 247 247 Sepsis Recent Fever Within 48 Hours Sepsis New/Unexplained Change in Mental Status Sepsis Action Taken by Nursing End-Tidal CO2 End Tidal CO2 (18-54mmHg) 35 35 32 The physical exam is limited due to the patient's condition. Constitutional: Vital signs reviewed. Eyes: Pupils are equal round reactive to light. Conjunctiva are noninjected. HENT: Normocephalic atraumatic. ET tube is in place. Respiratory: Rhonchi and rales bilaterally. Breath sounds are equal bilaterally. Cardiovascular: Tachycardic. Regular rhythm. GI: Soft and nondistended. There is a left colostomy with brown stool no blood is present. Bowel sounds are present. Musculoskeletal: No peripheral edema. Integumentary: No cyanosis. Neurological: The patient is intubated and unresponsive. Psychiatric: Unable to assess. Course Administered Medications Propofol (Diprivan) 1,000 mg in 100 mls @ 17.856 mls/hr IV .Q5H37M [facility]; Protocol Stop: 07/22/21 15:14 Last Titration: 07/19/21 17:52 Dose: 40 mcg/kg/min, 17.9 mls/hr Documented by: [id number] Titration: 07/19/21 17:46 Dose: 35 mcg/kg/min, 15.6 mls/hr Documented by: [id number] Titration: 07/19/21 16:41 Dose: 30 mcg/kg/min, 13.4 mls/hr Documented by: [id number] Titration: 07/19/21 16:18 Dose: 25 mcg/kg/min, 11.2 mls/hr Documented by: [id number] Titration: 07/19/21 16:07 Dose: 20 mcg/kg/min, 8.9 mls/hr Documented by: [id number] Titration: 07/19/21 15:43 Dose: 15 mcg/kg/min, 6.7 mls/hr Documented by: [id number] Admin: 07/19/21 15:02 Dose: 10 mcg/kg/min, 4.5 mls/hr Documented by: [id number] Cosigned by: [id number] Cefepime HCl 2,000 mg/ Syringe 20 mls @ 5 mls/min IV Q12H RAMÓN; Protocol Stop: 07/26/21 19:59 Last Admin: 07/19/21 21:13 Dose: 5 mls/min Documented by: [id number] Azithromycin 500 mg/ Dextrose 255 mls @ 125 mls/hr IV Q24H RAMÓN Stop: 07/26/21 19:59 Last Admin: 07/19/21 21:12 Dose: 125 mls/hr Documented by: [id number] Methylprednisolone 60 mg/ (Syringe) 0.96 mls @ 1.5 mls/min IV Q8H RAMÓN Stop: 08/18/21 20:59 Last Admin: 07/19/21 21:20 Dose: 1.5 mls/min Documented by: [id number] Propofol (Propofol Bolus From Bag) 20 mg IV Q5M PRN PRN Reason: Sedation Stop: 07/22/21 15:06 Last Admin: 07/19/21 18:23 Dose: 20 mg Documented by: [id number] Cosigned by: [id number] Admin: 07/19/21 17:52 Dose: 20 mg Documented by: [id number] Cosigned by: [id number] Admin: 07/19/21 17:41 Dose: 20 mg Documented by: [id number] Cosigned by: [id number] Admin: 07/19/21 16:58 Dose: 20 mg Documented by: [id number] Cosigned by: [id number] Admin: 07/19/21 16:42 Dose: 20 mg Documented by: [id number] Cosigned by: [id number] Admin: 07/19/21 16:20 Dose: 20 mg Documented by: [id number] Cosigned by: [id number] Admin: 07/19/21 16:09 Dose: 20 mg Documented by: [id number] Cosigned by: [id number] Admin: 07/19/21 15:44 Dose: 20 mg Documented by: [id number] Cosigned by: [id number] Discontinued Medications Furosemide (Furosemide 40 Mg/4 Ml Vial) 40 mg IV ONE ONE Stop: 07/19/21 15:45 Last Admin: 07/19/21 15:55 Dose: 40 mg Documented by: [id number] Insulin Human Regular 2 units/ (Syringe) 2 mls @ 0 mls/min IV 2030 ONE Stop: 07/19/21 20:31 Last Admin: 07/19/21 21:13 Dose: 1 mls/min Documented by: [id number] Cosigned by: [id number] Insulin Human Regular (Novolin-R Insulin Per Unit Charge) 10 units IV NOW STA Stop: 07/19/21 16:28 Last Admin: 07/19/21 16:35 Dose: 10 units Documented by: [id number] Cosigned by: [id number] Ioversol (Optiray 320 125ml) 120 ml IV ONCE ONE Stop: 07/19/21 15:33 Last Admin: 07/19/21 15:32 Dose: 120 ml Documented by: [id number] Miscellaneous (Rapid Sequence Induction Bag) Confirm Administered Dose 1 ea .ROUTE .STK-MED ONE Stop: 07/19/21 14:28 Last Admin: 07/19/21 15:47 Dose: Not Given Documented by: [id number] Miscellaneous (Patient's Height &/Or Weight Needed) 1 ea N/A Q2H RAMÓN Stop: 08/18/21 15:14 Last Admin: 07/19/21 18:51 Dose: 1 ea Documented by: [id number] Admin: 07/19/21 15:47 Dose: 1 ea Documented by: [id number] Propofol (Propofol Iv Emulsion 10 Mg/Ml 20 Ml Vial) Confirm Administered Dose 200 mg IV .STK-MED ONE Stop: 07/19/21 14:30 Last Admin: 07/19/21 15:47 Dose: Not Given Documented by: [id number] Propofol (Propofol Iv Emulsion 10 Mg/Ml 100 Ml Vial) Confirm Administered Dose 1,000 mg IV .[place] ONE Stop: 07/19/21 14:30 Last Admin: 07/19/21 15:47 Dose: Not Given Documented by: [id number] Critical Care Time Critical Care Time: Yes Total Critical Care Time: 55 I have personally spent approximately 55 minutes of critical care time in the direct management of this patient. This includes bedside care, interpretation of diagnostic studies, and testing, discussion with consultants, patient, and family members, and other required patient management activities. These minutes are in excess of all separately billable procedures. Medical Decision Making Differential Diagnosis Respiratory failure, pulmonary embolism, DVT, pneumonia, CHF, COVID-19, intr acranial hemorrhage, CVA, metabolic derangement, medication reaction Medical Records Attestation: I reviewed the patient's medical records. I did perform a limited focused review of portions of the patient's old chart on the electronic medical record. The patient was seen by her primary care physician last month. She is followed by oncology for ovarian cancer. Home Medications Current Medication List: was personally reviewed by me Laboratory Data Attestation: I reviewed the patient's lab results. Result diagrams: 07/19/21 20:57 07/19/21 20:51 Lab Results 07/19/21 07/19/21 07/19/21 Range/Units 14:56 14:59 15:04 WBC (4.8-10.8) K/uL RBC (4.2-5.4) M/uL Hgb (12.0-16.0) g/dL POC Hgb (12.0-16.0) g/dl Hct (37-47) % POC Hct (37-47) % MCV (80-100) fL MCH (25-34) pg MCHC (32-36) g/dL RDW Std Deviation (36.4-46.3) fL RDW Coeff of Dolores (11.5-14.5) % Plt Count (130-400) K/uL MPV (7.4-10.4) fL Immature Gran % (Auto) % Neut % (Auto) % Lymph % (Auto) % Nelson % (Auto) % Eos % (Auto) % Baso % (Auto) % Neut # (Auto) (1.4-6.5) K/uL Lymph # (Auto) (1.2-3.4) K/uL Nelson # (Auto) (0.11-0.59) K/uL Eos # (Auto) (0-0.5) K/uL Baso # (Auto) (0-0.2) K/uL Immature Gran # (Auto) (0.00-0.02) K/uL PT (9.0-12.0) Seconds INR (0.9-1.1) APTT (21.0-31.0) Seconds PTT Ratio D-Dimer (0-500) ug/L FEU POC Sodium (135-144) mmol/L Sodium POC Potassium (3.3-5.0) mmol/L Potassium POC Chloride (101-112) mmol/L Chloride (98-107) mmol/L Carbon Dioxide (21-32) mmol/L POC Total CO2 (24-31) mmol/L Anion Gap POC Anion Gap (16-25) mmol/L POC BUN (7-18) mg/dl BUN (6-23) mg/dl Creatinine (0.6-1.2) mg/dl POC Creatinine (0.6-1.3) mg/dl Est Cr Clr Drug Dosing Est GFR ( Amer) ml/min Est GFR (Non-Af Amer) ml/min BUN/Creatinine Ratio (10-20) Glucose (70-99(Fasting)) mg/dl POC Glucose 459 H* (70-99) mg/dl POC Glucose (other) Lactate (0.4-2.0) mmol/L Calcium (8.5-10.1) mg/dl POC Ioniz Calcium Saskia (1.12-1.32) mmol/l Magnesium Total Bilirubin (0.2-1.0) mg/dl AST ALT (7-52) U/L Alkaline Phosphatase (34-104) U/L Troponin I High Sens 32.6 H (0-14) pg/ml Total Protein (6.0-8.3) gm/dl Albumin (3.4-5.0) gm/dl Globulin (2.5-4.0) gm/dl Albumin/Globulin Ratio (0.9-2) Urine Color Urine Appearance (Clear) Urine pH (4.5-7.5) Ur Specific [facility] (1.000-1.030) Urine Protein (Negative) Urine Glucose (UA) (Negative) Urine Ketones (Negative) Urine Blood (Negative) Urine Nitrite (Negative) Urine Bilirubin (Negative) Urine Urobilinogen (Negative) Ur Leukocyte Esterase (Negative) Urine WBC (Auto) (0-5) /hpf Urine RBC (Auto) (0-4) /hpf U Hyaline Cast (Auto) (0-5) /lpf U Epithel Cells (Auto) (0-5) /lpf Urine Bacteria (Auto) (Negative) Adenovirus (PCR) Not Detected (NotDetected) B. pertussis DNA (PCR) Not Detected (NotDetected) B.parapertussis DNA PCR Not Detected (NotDetected) C. pneumoniae DNA (PCR) Not Detected (NotDetected) Coronavirus OC43 (PCR) Not Detected (NotDetected) Coronavirus HKU1 (PCR) Not Detected (NotDetected) Coronavirus 229E (PCR) Not Detected (NotDetected) SARS-CoV-2 (PCR) Not Detected (NotDetected) Coronavirus NL63 (PCR) Not Detected (NotDetected) Human Metapneumovir PCR Not Detected (NotDetected) Influenza Type A (PCR) Not Detected (NotDetected) Influenza Type B (PCR) Not Detected (NotDetected) M. pneumoniae (PCR) Not Detected (NotDetected) Parainfluenza 1 (PCR) Not Detected (NotDetected) Parainfluenza 2 (PCR) Not Detected (NotDetected) Parainfluenza 3 (PCR) Not Detected (NotDetected) Parainfluenza 4 (PCR) Not Detected (NotDetected) RSV (PCR) Not Detected (NotDetected) Entero/Rhino (PCR) Not Detected (NotDetected) 07/19/21 07/19/21 07/19/21 Range/Units 15:04 15:04 15:06 WBC 7.47 (4.8-10.8) K/uL RBC 3.70 L (4.2-5.4) M/uL Hgb 11.4 L (12.0-16.0) g/dL POC Hgb 11.9 L (12.0-16.0) g/dl Hct 34.5 L (37-47) % POC Hct 35 L (37-47) % MCV 93.2 (80-100) fL MCH 30.8 (25-34) pg MCHC 33.0 (32-36) g/dL RDW Std Deviation 61.0 H (36.4-46.3) fL RDW Coeff of Dolores 18.1 H (11.5-14.5) % Plt Count 280 D (130-400) K/uL MPV 8.9 (7.4-10.4) fL Immature Gran % (Auto) 0.8 % Neut % (Auto) 79.8 % Lymph % (Auto) 19.0 % Nelson % (Auto) 0.4 % Eos % (Auto) 0.0 % Baso % (Auto) 0.0 % Neut # (Auto) 5.96 (1.4-6.5) K/uL Lymph # (Auto) 1.42 (1.2-3.4) K/uL Nelson # (Auto) 0.03 L (0.11-0.59) K/uL Eos # (Auto) 0.00 (0-0.5) K/uL Baso # (Auto) 0.00 (0-0.2) K/uL Immature Gran # (Auto) 0.06 H (0.00-0.02) K/uL PT (9.0-12.0) Seconds INR (0.9-1.1) APTT (21.0-31.0) Seconds PTT Ratio D-Dimer (0-500) ug/L FEU POC Sodium 132 L (135-144) mmol/L Sodium TNP POC Potassium 7.0 H* (3.3-5.0) mmol/L Potassium TNP POC Chloride 112 (101-112) mmol/L Chloride 103 (98-107) mmol/L Carbon Dioxide 14 L (21-32) mmol/L POC Total CO2 17 L (24-31) mmol/L Anion Gap TNP POC Anion Gap 11.0 L (16-25) mmol/L POC BUN 58 H (7-18) mg/dl BUN 36 H (6-23) mg/dl Creatinine 1.47 H (0.6-1.2) mg/dl POC Creatinine 1.2 (0.6-1.3) mg/dl Est Cr Clr Drug Dosing Not Reportable Est GFR ( Amer) 40.1 ml/min Est GFR (Non-Af Amer) 34.6 ml/min BUN/Creatinine Ratio 24.5 H (10-20) Glucose 432 H* (70-99(Fasting)) mg/dl POC Glucose (70-99) mg/dl POC Glucose (other) TNP Lactate (0.4-2.0) mmol/L Calcium 8.6 (8.5-10.1) mg/dl POC Ioniz Calcium Saskia 1.11 L (1.12-1.32) mmol/l Magnesium TNP Total Bilirubin 0.5 (0.2-1.0) mg/dl AST TNP ALT 115 H (7-52) U/L Alkaline Phosphatase 245 H (34-104) U/L Troponin I High Sens (0-14) pg/ml Total Protein 7.5 (6.0-8.3) gm/dl Albumin 3.8 (3.4-5.0) gm/dl Globulin 3.7 (2.5-4.0) gm/dl Albumin/Globulin Ratio 1.0 (0.9-2) Urine Color Urine Appearance (Clear) Urine pH (4.5-7.5) Ur Specific [facility] (1.000-1.030) Urine Protein (Negative) Urine Glucose (UA) (Negative) Urine Ketones (Negative) Urine Blood (Negative) Urine Nitrite (Negative) Urine Bilirubin (Negative) Urine Urobilinogen (Negative) Ur Leukocyte Esterase (Negative) Urine WBC (Auto) (0-5) /hpf Urine RBC (Auto) (0-4) /hpf U Hyaline Cast (Auto) (0-5) /lpf U Epithel Cells (Auto) (0-5) /lpf Urine Bacteria (Auto) (Negative) Adenovirus (PCR) (NotDetected) B. pertussis DNA (PCR) (NotDetected) B.parapertussis DNA PCR (NotDetected) C. pneumoniae DNA (PCR) (NotDetected) Coronavirus OC43 (PCR) (NotDetected) Coronavirus HKU1 (PCR) (NotDetected) Coronavirus 229E (PCR) (NotDetected) SARS-CoV-2 (PCR) (NotDetected) Coronavirus NL63 (PCR) (NotDetected) Human Metapneumovir PCR (NotDetected) Influenza Type A (PCR) (NotDetected) Influenza Type B (PCR) (NotDetected) M. pneumoniae (PCR) (NotDetected) Parainfluenza 1 (PCR) (NotDetected) Parainfluenza 2 (PCR) (NotDetected) Parainfluenza 3 (PCR) (NotDetected) Parainfluenza 4 (PCR) (NotDetected) RSV (PCR) (NotDetected) Entero/Rhino (PCR) (NotDetected) 07/19/21 07/19/21 07/19/21 Range/Units 15:20 15:20 15:20 WBC (4.8-10.8) K/uL RBC (4.2-5.4) M/uL Hgb (12.0-16.0) g/dL POC Hgb (12.0-16.0) g/dl Hct (37-47) % POC Hct (37-47) % MCV (80-100) fL MCH (25-34) pg MCHC (32-36) g/dL RDW Std Deviation (36.4-46.3) fL RDW Coeff of Dolores (11.5-14.5) % Plt Count (130-400) K/uL MPV (7.4-10.4) fL Immature Gran % (Auto) % Neut % (Auto) % Lymph % (Auto) % Nelson % (Auto) % Eos % (Auto) % Baso % (Auto) % Neut # (Auto) (1.4-6.5) K/uL Lymph # (Auto) (1.2-3.4) K/uL Nelson # (Auto) (0.11-0.59) K/uL Eos # (Auto) (0-0.5) K/uL Baso # (Auto) (0-0.2) K/uL Immature Gran # (Auto) (0.00-0.02) K/uL PT 10.6 (9.0-12.0) Seconds INR 1.0 (0.9-1.1) APTT 24.5 (21.0-31.0) Seconds PTT Ratio 0.8 D-Dimer 4340 H* (0-500) ug/L FEU POC Sodium (135-144) mmol/L Sodium 131 L POC Potassium (3.3-5.0) mmol/L Potassium 5.2 H POC Chloride (101-112) mmol/L Chloride (98-107) mmol/L Carbon Dioxide (21-32) mmol/L POC Total CO2 (24-31) mmol/L Anion Gap POC Anion Gap (16-25) mmol/L POC BUN (7-18) mg/dl BUN (6-23) mg/dl Creatinine (0.6-1.2) mg/dl POC Creatinine (0.6-1.3) mg/dl Est Cr Clr Drug Dosing Est GFR ( Amer) ml/min Est GFR (Non-Af Amer) ml/min BUN/Creatinine Ratio (10-20) Glucose (70-99(Fasting)) mg/dl POC Glucose (70-99) mg/dl POC Glucose (other) Lactate 5.3 H* (0.4-2.0) mmol/L Calcium (8.5-10.1) mg/dl POC Ioniz Calcium Saskia (1.12-1.32) mmol/l Magnesium 1.8 Total Bilirubin (0.2-1.0) mg/dl AST 111 H ALT (7-52) U/L Alkaline Phosphatase (34-104) U/L Troponin I High Sens (0-14) pg/ml Total Protein (6.0-8.3) gm/dl Albumin (3.4-5.0) gm/dl Globulin (2.5-4.0) gm/dl Albumin/Globulin Ratio (0.9-2) Urine Color Urine Appearance (Clear) Urine pH (4.5-7.5) Ur Specific [facility] (1.000-1.030) Urine Protein (Negative) Urine Glucose (UA) (Negative) Urine Ketones (Negative) Urine Blood (Negative) Urine Nitrite (Negative) Urine Bilirubin (Negative) Urine Urobilinogen (Negative) Ur Leukocyte Esterase (Negative) Urine WBC (Auto) (0-5) /hpf Urine RBC (Auto) (0-4) /hpf U Hyaline Cast (Auto) (0-5) /lpf U Epithel Cells (Auto) (0-5) /lpf Urine Bacteria (Auto) (Negative) Adenovirus (PCR) (NotDetected) B. pertussis DNA (PCR) (NotDetected) B.parapertussis DNA PCR (NotDetected) C. pneumoniae DNA (PCR) (NotDetected) Coronavirus OC43 (PCR) (NotDetected) Coronavirus HKU1 (PCR) (NotDetected) Coronavirus 229E (PCR) (NotDetected) SARS-CoV-2 (PCR) (NotDetected) Coronavirus NL63 (PCR) (NotDetected) Human Metapneumovir PCR (NotDetected) Influenza Type A (PCR) (NotDetected) Influenza Type B (PCR) (NotDetected) M. pneumoniae (PCR) (NotDetected) Parainfluenza 1 (PCR) (NotDetected) Parainfluenza 2 (PCR) (NotDetected) Parainfluenza 3 (PCR) (NotDetected) Parainfluenza 4 (PCR) (NotDetected) RSV (PCR) (NotDetected) Entero/Rhino (PCR) (NotDetected) 07/19/21 07/19/21 07/19/21 Range/Units 15:21 16:56 17:38 WBC (4.8-10.8) K/uL RBC (4.2-5.4) M/uL Hgb (12.0-16.0) g/dL POC Hgb (12.0-16.0) g/dl Hct (37-47) % POC Hct (37-47) % MCV (80-100) fL MCH (25-34) pg MCHC (32-36) g/dL RDW Std Deviation (36.4-46.3) fL RDW Coeff of Dolores (11.5-14.5) % Plt Count (130-400) K/uL MPV (7.4-10.4) fL Immature Gran % (Auto) % Neut % (Auto) % Lymph % (Auto) % Nelson % (Auto) % Eos % (Auto) % Baso % (Auto) % Neut # (Auto) (1.4-6.5) K/uL Lymph # (Auto) (1.2-3.4) K/uL Nelson # (Auto) (0.11-0.59) K/uL Eos # (Auto) (0-0.5) K/uL Baso # (Auto) (0-0.2) K/uL Immature Gran # (Auto) (0.00-0.02) K/uL PT (9.0-12.0) Seconds INR (0.9-1.1) APTT (21.0-31.0) Seconds PTT Ratio D-Dimer (0-500) ug/L FEU POC Sodium (135-144) mmol/L Sodium POC Potassium (3.3-5.0) mmol/L Potassium POC Chloride (101-112) mmol/L Chloride (98-107) mmol/L Carbon Dioxide (21-32) mmol/L POC Total CO2 (24-31) mmol/L Anion Gap POC Anion Gap (16-25) mmol/L POC BUN (7-18) mg/dl BUN (6-23) mg/dl Creatinine (0.6-1.2) mg/dl POC Creatinine (0.6-1.3) mg/dl Est Cr Clr Drug Dosing Est GFR ( Amer) ml/min Est GFR (Non-Af Amer) ml/min BUN/Creatinine Ratio (10-20) Glucose (70-99(Fasting)) mg/dl POC Glucose 408 H* 373 H* (70-99) mg/dl POC Glucose (other) Lactate (0.4-2.0) mmol/L Calcium (8.5-10.1) mg/dl POC Ioniz Calcium Saskia (1.12-1.32) mmol/l Magnesium Total Bilirubin (0.2-1.0) mg/dl AST ALT (7-52) U/L Alkaline Phosphatase (34-104) U/L Troponin I High Sens (0-14) pg/ml Total Protein (6.0-8.3) gm/dl Albumin (3.4-5.0) gm/dl Globulin (2.5-4.0) gm/dl Albumin/Globulin Ratio (0.9-2) Urine Color Yellow Urine Appearance Clear (Clear) Urine pH 5.0 (4.5-7.5) Ur Specific [facility] 1.026 (1.000-1.030) Urine Protein 2+ H (Negative) Urine Glucose (UA) 3+ H (Negative) Urine Ketones Trace H (Negative) Urine Blood Negative (Negative) Urine Nitrite Negative (Negative) Urine Bilirubin Negative (Negative) Urine Urobilinogen Negative (Negative) Ur Leukocyte Esterase Negative (Negative) Urine WBC (Auto) 1-5 (0-5) /hpf Urine RBC (Auto) 5-10 H (0-4) /hpf U Hyaline Cast (Auto) 1-5 (0-5) /lpf U Epithel Cells (Auto) 20-30 H (0-5) /lpf Urine Bacteria (Auto) Negative (Negative) Adenovirus (PCR) (NotDetected) B. pertussis DNA (PCR) (NotDetected) B.parapertussis DNA PCR (NotDetected) C. pneumoniae DNA (PCR) (NotDetected) Coronavirus OC43 (PCR) (NotDetected) Coronavirus HKU1 (PCR) (NotDetected) Coronavirus 229E (PCR) (NotDetected) SARS-CoV-2 (PCR) (NotDetected) Coronavirus NL63 (PCR) (NotDetected) Human Metapneumovir PCR (NotDetected) Influenza Type A (PCR) (NotDetected) Influenza Type B (PCR) (NotDetected) M. pneumoniae (PCR) (NotDetected) Parainfluenza 1 (PCR) (NotDetected) Parainfluenza 2 (PCR) (NotDetected) Parainfluenza 3 (PCR) (NotDetected) Parainfluenza 4 (PCR) (NotDetected) RSV (PCR) (NotDetected) Entero/Rhino (PCR) (NotDetected) 07/19/21 Range/Units 17:42 WBC (4.8-10.8) K/uL RBC (4.2-5.4) M/uL Hgb (12.0-16.0) g/dL POC Hgb (12.0-16.0) g/dl Hct (37-47) % POC Hct (37-47) % MCV (80-100) fL MCH (25-34) pg MCHC (32-36) g/dL RDW Std Deviation (36.4-46.3) fL RDW Coeff of Dolores (11.5-14.5) % Plt Count (130-400) K/uL MPV (7.4-10.4) fL Immature Gran % (Auto) % Neut % (Auto) % Lymph % (Auto) % Nelson % (Auto) % Eos % (Auto) % Baso % (Auto) % Neut # (Auto) (1.4-6.5) K/uL Lymph # (Auto) (1.2-3.4) K/uL Nelson # (Auto) (0.11-0.59) K/uL Eos # (Auto) (0-0.5) K/uL Baso # (Auto) (0-0.2) K/uL Immature Gran # (Auto) (0.00-0.02) K/uL PT (9.0-12.0) Seconds INR (0.9-1.1) APTT (21.0-31.0) Seconds PTT Ratio D-Dimer (0-500) ug/L FEU POC Sodium (135-144) mmol/L Sodium POC Potassium (3.3-5.0) mmol/L Potassium POC Chloride (101-112) mmol/L Chloride (98-107) mmol/L Carbon Dioxide (21-32) mmol/L POC Total CO2 (24-31) mmol/L Anion Gap POC Anion Gap (16-25) mmol/L POC BUN (7-18) mg/dl BUN (6-23) mg/dl Creatinine (0.6-1.2) mg/dl POC Creatinine (0.6-1.3) mg/dl Est Cr Clr Drug Dosing Est GFR ( Amer) ml/min Est GFR (Non-Af Amer) ml/min BUN/Creatinine Ratio (10-20) Glucose (70-99(Fasting)) mg/dl POC Glucose (70-99) mg/dl POC Glucose (other) Lactate 4.0 H* (0.4-2.0) mmol/L Calcium (8.5-10.1) mg/dl POC Ioniz Calcium Saskia (1.12-1.32) mmol/l Magnesium Total Bilirubin (0.2-1.0) mg/dl AST ALT (7-52) U/L Alkaline Phosphatase (34-104) U/L Troponin I High Sens (0-14) pg/ml Total Protein (6.0-8.3) gm/dl Albumin (3.4-5.0) gm/dl Globulin (2.5-4.0) gm/dl Albumin/Globulin Ratio (0.9-2) Urine Color Urine Appearance (Clear) Urine pH (4.5-7.5) Ur Specific [facility] (1.000-1.030) Urine Protein (Negative) Urine Glucose (UA) (Negative) Urine Ketones (Negative) Urine Blood (Negative) Urine Nitrite (Negative) Urine Bilirubin (Negative) Urine Urobilinogen (Negative) Ur Leukocyte Esterase (Negative) Urine WBC (Auto) (0-5) /hpf Urine RBC (Auto) (0-4) /hpf U Hyaline Cast (Auto) (0-5) /lpf U Epithel Cells (Auto) (0-5) /lpf Urine Bacteria (Auto) (Negative) Adenovirus (PCR) (NotDetected) B. pertussis DNA (PCR) (NotDetected) B.parapertussis DNA PCR (NotDetected) C. pneumoniae DNA (PCR) (NotDetected) Coronavirus OC43 (PCR) (NotDetected) Coronavirus HKU1 (PCR) (NotDetected) Coronavirus 229E (PCR) (NotDetected) SARS-CoV-2 (PCR) (NotDetected) Coronavirus NL63 (PCR) (NotDetected) Human Metapneumovir PCR (NotDetected) Influenza Type A (PCR) (NotDetected) Influenza Type B (PCR) (NotDetected) M. pneumoniae (PCR) (NotDetected) Parainfluenza 1 (PCR) (NotDetected) Parainfluenza 2 (PCR) (NotDetected) Parainfluenza 3 (PCR) (NotDetected) Parainfluenza 4 (PCR) (NotDetected) RSV (PCR) (NotDetected) Entero/Rhino (PCR) (NotDetected) Imaging Data Radiologist's Impression: Head CT 07/19/21 14:54 CT SCAN OF THE BRAIN WITHOUT IV CONTRAST CLINICAL HISTORY: Change in mental status. COMPARISON STUDY: No priors. TECHNIQUE: Unenhanced axial CT scan of the brain is performed from the vertex to the skull base. A dose lowering technique was utilized adhering to the principles of ALARA. FINDINGS: An endotracheal tube is noted on the activities director scouting tomogram. Brain parenchyma: There is age-related involutional change noting mild subcortical and periventricular microangiopathic disease. There is no hemorrhage, mass effect, or evidence of acute territorial ischemia by CT criteria. Villeda-white matter differentiation is preserved. No extra-axial fluid collection is seen. Ventricles, sulci, cisterns: Prominent secondary to involutional change. Intracranial vasculature: There is mild atherosclerotic calcification of the cavernous carotid arteries. Calvarium: Unremarkable. Sinuses and mastoids: The visualized paranasal sinuses are clear. The mastoid air cells are well pneumatized. Orbits: The bony orbits are grossly intact. There are bilateral ocular lens implants. IMPRESSION: There is no hemorrhage, mass effect, or evidence of acute territorial ischemia by CT criteria. ACT 112: Negative or not required by law. Electronically signed by: Jason Santana M.D. 07/19/2021 3:47 PM Chest CTA 07/19/21 14:55 CT ANGIOGRAPHY OF THE CHEST, PULMONARY EMBOLUS PROTOCOL CLINICAL HISTORY: Dyspnea. COMPARISON STUDY: Chest CT March 30, 2021. Chest radiograph performed earlier today. TECHNIQUE: Following IV administration of 120 mL of Optiray, helical axial images of the chest were obtained utilizing the pulmonary embolus protocol. Maximal intensity projections and sagittal and coronal reformats were viewed on an independent 3D workstation. IV contrast was administered without complication. Automated exposure control was utilized for the study. A dose lowering technique was utilized adhering to the principles of ALARA. CT DOSE: 1204.01 mGy.cm FINDINGS: No pulmonary emboli are identified although segmental and sub segmental pulmonary arteries are suboptimally assessed due to respiratory motion. There is no thoracic aortic dissection. Mild cardiomegaly is noted. No thoracic lymphadenopathy is present. There are small bilateral pleural effusions. There is no pneumothorax. Extensive interlobular septal thickening is noted. There are also moderate airspace opacities throughout the lungs. These are most pronounced within the lower lobes. Visualized portions of the upper abdomen are unremarkable. Tip of endotracheal tube is just above the samm. Left subclavian Mncore-w-Gssg is in place. IMPRESSION: 1. No pulmonary emboli identified although exam mildly compromised by respiratory motion artifact. 2. Moderate to severe interstitial pulmonary edema. Airspace opacities could reflect alveolar pulmonary edema. However, superimposed aspiration pneumonitis or an infectious process is also within the differential. 3. Mild cardiomegaly. 4. Small bilateral pleural effusions. 5. Tip of endotracheal tube just above the samm. ACT 112: Negative or not required by law. Electronically signed by: Lemuel Guzmán M.D. 07/19/2021 3:51 PM Chest X-Ray 07/19/21 14:55 SINGLE VIEW CHEST CLINICAL HISTORY: Dyspnea. Respiratory failure. FINDINGS: 2 AP, portable, supine chest radiographs are compared to study dated 06/14/2021. The examination is degraded by portable technique and patient rotation. A left subclavian central venous infusion port is unchanged in position. An endotracheal tube has been placed. The tip projects approximately 2.5 cm above the samm The heart is enlarged noting atherosclerotic calcification of the thoracic aorta. There is pulmonary vascular congestion. Perihilar airspace opacities likely represent pulmonary edema. No large pleural effusion or pneumothorax is seen. The skeletal structures are osteopenic. The bony thorax is grossly intact. IMPRESSION: 1. An endotracheal tube has been placed as above. 2. Cardiomegaly with evidence of congestive failure. 3. Extensive bilateral perihilar airspace opacities likely represent pulmonary edema. Correlate clinically for evidence of a superimposed infectious/inflammatory pneumonitis. ACT 112: Negative or not required by law. Electronically signed by: Jason Santana M.D. 07/19/2021 3:13 PM ECG Data Attestation: I personally reviewed and interpreted this ECG as follows: Indication: + altered mental status Rate (beats per minute): 105 Rhythm: + sinus tachycardia ECG [place]: + Right axis deviation ECG ST segments: + ST depression and + T-wave inversions ECG Findings: + Other (Nonspecific intraventricular block) Comparison ECG Date: from (February 12, 2021) Change: no significant change MDM Narrative I did provide prehospital medical command for the patient. The patient had si gnificant respiratory depression and worsening hypoxemia. I did order etomidate 20 IV to facilitate intubation. I did evaluate the patient immediately on arrival as noted above. I did obtain history from the patient's as well as the directory carrier. I did place an order for continuous cardiac monitoring. The monitor showed sinus tachycardia at 101 bpm. I did order and personally review the patient's 12-lead EKG as described above. She has a nonspecific intraventricular block which was present on a previous EKG. She has ST depressions that were also present previously. I did order and personally reviewed the images of the patient's chest x-ray as described above. She appears to have pulmonary edema. I did treat her with Lasix 40 mg IV. PEEP was added onto her ventilator settings. She was placed on a dipper Van drip for sedation. did order a urine analysis. She does not have a UTI. She has trace ketones and glucose. Bio fire testing is negative for COVID and other viruses. I did order and review the patient's blood work as noted in the electronic medical record. CBC demonstrates a chronic anemia with a hemoglobin of 11.4. Her white count is not elevated. Himls-mc-bddx potassium was 7 but repeat lab potassium was 5.2. Glucose was 432. I did treat her with 10 units of insulin IV. She has hyponatremia with a sodium of 131. Creatinine and BUN are 1.47 and 36 respectively. LFTs show an elevation of the AST and ALT as well as the alk phos. High-sensitivity troponin is elevated. D-dimer is elevated as well. Lactate is 5.3. I did order a CT of the head and CT angiogram of the chest. I did review the images myself as well as the radiology report as described above. There is no evidence of acute intracranial abnormality. CT angiogram demonstrates no evidence of pulmonary embolism. She does have significant pulmonary edema as well as pleural effusions. I did reevaluate the patient multiple times. I did update the family who are at the bedside. I did discuss the case with Dr. Lemus from the ICU as well as the hospitalist and rn case management. Impression & Plan Acute respiratory failure with hypoxia, CKD (chronic kidney disease), stage III, Acute hyperkalemia, Chronic anemia, Hyponatremia, Elevated troponin, Abnormal LFTs Discharge Plan Visit Data Chief Complaint: Unresponsive ED Provider: Rehan Cedeño Discharge Problem: Acute respiratory failure with hypoxia, CKD (chronic kidney disease), stage III, Acute hyperkalemia, Chronic anemia, Hyponatremia, Elevated troponin, Abnormal LFTs Patient Disposition: Admitted As Inpatient Discharge Instructions Interventions: ED Discharge Assessment Last Done: 07/19/21 18:18
--- NOTE | 2021-07-19 15:15 | XRay Report ---
SINGLE VIEW CHEST CLINICAL HISTORY: Dyspnea. Respiratory failure. FINDINGS: 2 AP, portable, supine chest radiographs are compared to study dated 06/14/2021. The examina tion is degraded by portable technique and patient rotation. A left subclavian central venous infusio n port is unchanged in position. An endotracheal tube has been placed. The tip projects approximately 2.5 cm above the samm The heart is enlarged noting atherosclerotic calcification of the thoracic a ambrosio. There is pulmonary vascular congestion. Perihilar airspace opacities likely represent pulmonary edema. No large pleural effusion or pneumothorax is seen. The skeletal structures are osteopenic. Th e bony thorax is grossly intact. IMPRESSION: 1. An endotracheal tube has been placed as above. 2. Cardiomegaly with evidence of congestive failure. 3. Extensive bilateral perihilar airspace opacities likely represent pulmonary edema. Correlate clini gunner for evidence of a superimposed infectious/inflammatory pneumonitis. ACT 112: Negative or not required by law. Electronically signed by: Jason Santana M.D. 07/19/2021 3:13 PM
[2021-07-19 15:26] LABS: Hematocrit (blood only) 34.5 % (37-47); Hemoglobin 11.4 g/dL (12.0-16.0); Immature Granulocytes # (auto) 0.06 K/uL (0.00-0.02); Immature Granulocytes % (auto) 0.8 %; Lymphocytes # (auto) 1.42 K/uL (1.2-3.4); Mean Corpuscular Hemoglobin 30.8 pg (25-34); Mean Corpuscular Volume 93.2 fL (80-100); Mean Platelet Volume 8.9 fL (7.4-10.4); Monocytes # (auto) 0.03 K/uL (0.11-0.59); Monocytes % (auto) 0.4 %; Neutrophils # (auto) 5.96 K/uL (1.4-6.5); Neutrophils % (auto) 79.8 %; Platelet Count 280 K/uL (130-400); RDW Coefficient of Variation 18.1 % (11.5-14.5); White Blood Count 7.47 K/uL (4.8-10.8)
[2021-07-19 15:32] LABS: Partial Thromboplastin Ratio 0.8
[2021-07-19] MEDS ORDERED: OPTIRAY 320 125ml IV ONE (15:32)
[2021-07-19 15:42] LABS: Alanine Aminotransferase 115 U/L (7-52); Albumin Level 3.8 gm/dl (3.4-5.0); Alkaline Phosphatase 245 U/L (34-104); BUN Creatinine Ratio 24.5 (10-20); Bilirubin,Total 0.5 mg/dl (0.2-1.0); Blood Urea Nitrogen 36 mg/dl (6-23); Calcium 8.6 mg/dl (8.5-10.1); Carbon Dioxide 14 mmol/L (21-32); Chloride 103 mmol/L (98-107); Est GFR (African American) 40.1 ml/min; Est GFR (Non-African American) 34.6 ml/min; Globulin 3.7 gm/dl (2.5-4.0); Glucose 432 mg/dl (70-99(Fasting)); Total Protein 7.5 gm/dl (6.0-8.3)
[2021-07-19 15:43] LABS: Partial Thromboplastin Time 24.5 Seconds (21.0-31.0); Prothrombin Time 10.6 Seconds (9.0-12.0)
[2021-07-19] MEDS: PROPOFOL BOLUS FROM BAG IV PRN ×8 (15:44→18:23)
[2021-07-19] MEDS ORDERED: FUROSEMIDE 40 MG/4 ML VIAL IV ONE (15:44)
[2021-07-19 15:45] LABS: D Dimer 4340 ug/L FEU (0-500)
[2021-07-19] MEDS: Patient's HEIGHT &/or WEIGHT Needed SCH ×2 (15:47→18:51)
--- NOTE | 2021-07-19 15:48 | CT Scan Report ---
CT SCAN OF THE BRAIN WITHOUT IV CONTRAST CLINICAL HISTORY: Change in mental status. COMPARISON STUDY: No priors. TECHNIQUE: Unenhanced axial CT scan of the brain is performed from the vertex to the skull base. A do se lowering technique was utilized adhering to the principles of ALARA. FINDINGS: An endotracheal tube is noted on the dry wall finisher tomogram. Brain parenchyma: There is age-related involutional change noting mild subcortical and periventricula r microangiopathic disease. There is no hemorrhage, mass effect, or evidence of acute territorial isc hemia by CT criteria. Villeda-white matter differentiation is preserved. No extra-axial fluid collection is seen. Ventricles, sulci, cisterns: Prominent secondary to involutional change. Intracranial vasculature: There is mild atherosclerotic calcification of the cavernous carotid arteri es. Calvarium: Unremarkable. Sinuses and mastoids: The visualized paranasal sinuses are clear. The mastoid air cells are well pneu matized. Orbits: The bony orbits are grossly intact. There are bilateral ocular lens implants. IMPRESSION: There is no hemorrhage, mass effect, or evidence of acute territorial ischemia by CT nilda blum. ACT 112: Negative or not required by law. Electronically signed by: Jason Santana M.D. 07/19/2021 3:47 PM
--- NOTE | 2021-07-19 15:52 | CT Scan Report ---
CT ANGIOGRAPHY OF THE CHEST, PULMONARY EMBOLUS PROTOCOL CLINICAL HISTORY: Dyspnea. COMPARISON STUDY: Chest CT March 30, 2021. Chest radiograph performed earlier today. TECHNIQUE: Following IV administration of 120 mL of Optiray, helical axial images of the chest were o btained utilizing the pulmonary embolus protocol. Maximal intensity projections and sagittal and cor onal reformats were viewed on an independent 3D workstation. IV contrast was administered without co mplication. Automated exposure control was utilized for the study. A dose lowering technique was ut ilized adhering to the principles of ALARA. CT DOSE: 1204.01 mGy.cm FINDINGS: No pulmonary emboli are identified although segmental and subsegmental pulmonary arteries are suboptimally assessed due to respiratory motion. There is no thoracic aortic dissection. Mild car diomegaly is noted. No thoracic lymphadenopathy is present. There are small bilateral pleural effusio ns. There is no pneumothorax. Extensive interlobular septal thickening is noted. There are also moder ate airspace opacities throughout the lungs. These are most pronounced within the lower lobes. Visual ized portions of the upper abdomen are unremarkable. Tip of endotracheal tube is just above the ramirez a. Left subclavian Drpjsi-g-Ounf is in place. IMPRESSION: 1. No pulmonary emboli identified although exam mildly compromised by respiratory motion artifact. 2. Moderate to severe interstitial pulmonary edema. Airspace opacities could reflect alveolar pulmona ry edema. However, superimposed aspiration pneumonitis or an infectious process is also within the di fferential. 3. Mild cardiomegaly. 4. Small bilateral pleural effusions. 5. Tip of endotracheal tube just above the samm. ACT 112: Negative or not required by law. Electronically signed by: Lemuel Guzmán M.D. 07/19/2021 3:51 PM
[2021-07-19 15:54] LABS: Appearance Urine Clear (Clear); Bacteria Urine Automated Negative (Negative); Bilirubin Urine Negative (Negative); Blood Urine Negative (Negative); Color Urine Yellow; Epithelial Cell Urine Auto 20-30 /lpf (0-5); Glucose Urine UA 3+ (Negative); Ketones Urine Trace (Negative); Leukocyte Esterase Urine Negative (Negative); Nitrite Urine Negative (Negative); Protein Urine 2+ (Negative); Specific Gravity Urine 1.026 (1.000-1.030); Urobilinogen Urine Negative (Negative)
[2021-07-19 16:08] LABS: Adenovirus PCR Not Detected (NotDetected); Bordetella parapertussis PCR Not Detected (NotDetected); Bordetella pertussis PCR Not Detected (NotDetected); Chlamydia pneumoniae PCR Not Detected (NotDetected); Coronavirus 229E PCR Not Detected (NotDetected); Coronavirus CoV-2 (COVID19)PCR Not Detected (NotDetected); Coronavirus HKU1 PCR Not Detected (NotDetected); Coronavirus NL63 PCR Not Detected (NotDetected); Coronavirus OC43PCR Not Detected (NotDetected); Human Metapneumovirus PCR Not Detected (NotDetected); Influenza A PCR Not Detected (NotDetected); Influenza B PCR Not Detected (NotDetected); Mycoplasma pneumoniae PCR Not Detected (NotDetected); Parainfluenza Virus 1 PCR Not Detected (NotDetected); Parainfluenza Virus 2 PCR Not Detected (NotDetected); Parainfluenza Virus 3 PCR Not Detected (NotDetected); Parainfluenza Virus 4 PCR Not Detected (NotDetected); Respiratory Syncytial VirusPCR Not Detected (NotDetected); Rhinovirus/Enterovirus PCR Not Detected (NotDetected)
[2021-07-19 16:11] LABS: Magnesium 1.8 mg/dl (1.7-2.4); Potassium 5.2 mmol/L (3.5-5.1)
[2021-07-19 16:12] LABS: iSTAT Blood Urea Nitrogen 58 mg/dl (7-18); iSTAT Carbon Dioxide 17 mmol/L (24-31); iSTAT Chloride 112 mmol/L (101-112); iSTAT Creatinine 1.2 mg/dl (0.6-1.3); iSTAT Hematocrit 35 % (37-47); iSTAT Hemoglobin 11.9 g/dl (12.0-16.0); iSTAT Ionized Calcium 1.11 mmol/l (1.12-1.32); iSTAT Sodium 132 mmol/L (135-144)
[2021-07-19] MEDS ORDERED: NovoLIN-R INSULIN PER UNIT CHARGE IV STA (16:27)
--- NOTE | 2021-07-19 16:45 | History & Physical Report ---
Date of Service July 19, 2021 Assessment & Plan (1) Acute respiratory failure with hypoxia: Plan: Patient is intubated for airway protection. Patient appears to have developed flash pulmonary edema. D/W hardware technician, will hold diuretics and recheck patient in the AM. Unsure as to the cause. Perhaps non cardiogenic pulmonary edema, caused by carboplatin. will reassess respiratory function in AM and see if patient can be weaned and extubated. doubt infectious process (2) CKD (chronic kidney disease), stage III: Plan: creatinine appears to be at baseline. will recheck in AM. (3) Chronic anemia: Plan: hemoglobin at 9.1 will monitor (4) Ovarian cancer: Plan: being treated by cancer center. was obtaining chemotherapy carboplatin as stated above. (5) Dyslipidemia: Plan: resume home meds (6) HTN (hypertension): Plan: resume bp meds (7) Type 2 diabetes mellitus: Plan: hold oral meds. placed on ICU insulin protocol History of Present Illness Chief Complaint: acute respiratory failure Primary Care Provider: Haseeb Ball MD 76 year old female admitted after being intubated in the cancer center by EMS due to respiratory depression and patient being unresponsive. Patient is intubated at the time of interview. History obtained by chart review and discussion with the . Patient had no new complaints prior to today's episode. Patient has a history of ovarian cancer without metastasis. She was receiving her third dose of carboplatin today. She then became unresponsive, and developed respiratory depression. Her O2 sat was 80%. She did not respond to bag valve mask and required intubation. Patient denies any fever, chills, nausea. Allergies Allergy/AdvReac Type Severity Reaction Status Date / Time oxycodone AdvReac Intermediate "Sick" Verified 07/19/21 16:13 feeling ("I can't eat or go the bathroom") tramadol AdvReac Intermediate "Sick" Verified 07/19/21 16:13 feeling ("I can't eat or go the bathroom") Home Medications Medication Instructions Recorded Confirmed Type cholecalciferol (vitamin D3) 25 1,000 units PO 2XWK 11/17/18 07/19/21 History mcg (1,000 unit) tablet cyanocobalamin (vitamin B-12) 1,000 mcg PO QPM tab 11/17/18 07/19/21 History 1,000 mcg tablet,extended release krill 1 cap PO QPM 11/17/18 07/19/21 History anf-xx-[id number]-qws-dez-oooaizbmidymo 300 mg-90 mg-24 mg-50 mg capsule (krill oil) ropinirole 0.25 mg tablet 0.5 mg PO QPM #180 tab 01/22/21 07/19/21 Rx metformin 500 mg tablet,extended 1,000 mg PO BID #360 tab 03/12/21 07/19/21 Rx release 24 hr lisinopril 20 mg tablet 20 mg PO QAM 03/21/21 07/19/21 History Accu-Chek Guide test strips (blood #100 ea NS 06/01/21 07/19/21 Rx sugar diagnostic) glimepiride 2 mg tablet 2 mg PO BID tab 06/04/21 07/19/21 History melatonin 3 mg tablet 9 mg PO HS 06/12/21 07/19/21 History Past Med/Surg History Medical History Chronic insomnia CKD (chronic kidney disease), stage III Colostomy in [address] Dyslipidemia HTN (hypertension) Iron deficiency anemia HX TRANSFUSION 04/2021 [facility] Osteoarthritis of left knee Osteoarthritis of right knee Pelvic mass OVARIAN CANCER Peripheral neuropathy Psoriasis Psoriatic arthritis Restless legs syndrome Right knee DJD Type 2 diabetes mellitus Surgical History H/O bilateral cataract extraction H/O colonoscopy 03/2021 History of left knee replacement History of surgery excision ovarian cancer/pelvic mass/ diverting colostomy [facility] [place] Dr. Roque.- 04/10/21 [facility] History of tooth extraction Port-A-Cath in place (06/14/21) Insertion Access Port left subclavian vein with Fluoroscopy(Left) - Fracisco Lyles DO Family History Mother Brain tumor Father Kidney disease Grandmother Diabetes Other No family history of adverse response to anesthesia Denies family history of Ovarian cancer Prostate cancer Myocardial infarction Breast cancer Lung cancer Colorectal cancer Social History Smoking Status: Unknown if ever smoked Second Hand Exposure: No; Hx Alcohol Use: No Hx Substance Use: No Preferred Language: Malay Communication Ability: Effective Visual Impairment: No Limitations Hearing Ability: Normal Lamp Shades Supervisor Required: No Beliefs That Will Affect Care: None marital status: Current Living Situation: Spouse current occupational status: retired How many Children do You have: 1 Feels Safe at Home: Yes Childhood Exposure to Second-Hand Smoke: No caffeine: Yes Dental Care, Regularly: Yes Physical Activity Frequency: Does not Exercise Seatbelt Use: always Sunscreen Use: Yes Do you think of yourself as: straight/heterosexual Assistive Devices: Cane and Denture - Upper Review of Systems Review of Systems: Unobtainable due to cognitive status Physical Exam Constitutional: WD/WN, vitals as above (Patient is intubated and sedated) Eyes: PERRL, conjunctivae normal, anicteric sclerae ENMT: external ear and nose normal, oropharynx normal (Patient is intubated and sedated) Neck: trachea midline, no thyromegaly Respiratory: normal respiratory effort, lungs clear to auscultation Cardiovascular: RRR, no murmur, no edema Gastrointestinal (Abdomen): normal bowel sounds, soft, nontender, no hepatosplenomegaly (left colostomy) Musculoskeletal: no cyanosis or clubbing, extremities motor strength 5/5 Neurologic: PERRL, EOMI, accommodation nl, no face palsy, no dysarthria Psychiatric: Orientation: + not alert (sedated) Lymphatic: no cervical or axillary lymphadenopathy Results & Data Results & Data ([facility]) Vital Signs (Past 12 Hours) Vital Signs Temp Pulse Pulse Resp BP BP Pulse Ox 07/19/21 16:03 100 H 16 96 07/19/21 16:01 98 H 16 138/73 97 07/19/21 15:49 36.8 C 105 H 16 154/88 H 99 07/19/21 15:07 16 98 PG Care Time/CCT Total # of Minutes Spent Total Time Spent with Patient: Total time spent is greater than 50% in coordination of care (as documented) at patient's floor/unit and/or counseling patient: Coding Level of Care Code 00026 Initial Inpt Care Lvl 3 Diagnoses Acute respiratory failure with hypoxia J96.01 CKD (chronic kidney disease), stage III N18.30 Chronic kidney disease stage 3 subtype: unspecified whether 3a or 3b Chronic anemia D64.9 Ovarian cancer C56.9 Dyslipidemia E78.5 HTN (hypertension) I10 Hypertension type: essential hypertension Type 2 diabetes mellitus E11.9 Diabetes mellitus watermaster insulin use: without intermediate use Diabetes mellitus complication status: without complication (1) CKD (chronic kidney disease), stage III Chronic kidney disease stage 3 subtype: unspecified whether 3a or 3b Qualified Code(s): N18.30 - Chronic kidney disease, stage 3 unspecified (2) HTN (hypertension) Hypertension type: essential hypertension Qualified Code(s): I10 - Essential (primary) hypertension (3) Type 2 diabetes mellitus Diabetes mellitus intermediate insulin use: without intermediate use Diabetes mellitus complication status: without complication Qualified Code(s): E11.9 - Type 2 diabetes mellitus without complications
[2021-07-19] MEDS ORDERED: ICU PROTOCOL FOR HYPERGLYCEMIA PRN (17:51)
[2021-07-19] MEDS ORDERED: INSULIN REGULAR 250 UNITS in SODIUM CHLORIDE 0.9% 247.5 ML IV SCH ×2 (19:45→20:30)
[2021-07-19] MEDS ORDERED: diphenhydrAMINE 50 MG/ML VIAL IV STA (19:45)
[2021-07-19] MEDS ORDERED: INSULIN PROTOCOL GOAL RANGE ONE (19:45)
[2021-07-19] MEDS ORDERED: PHARMACY GLYCEMIC MGMT CONSULT PRN (19:45)
[2021-07-19] MEDS ORDERED: AZITHROMYCIN 500 MG in DEXTROSE 5% 250 ML IV SCH (20:00)
[2021-07-19 20:07] LABS: iSTAT Allen Test Pass; iSTAT Arterial Blood Gas HCO3 17 meg/L (19-24); iSTAT Arterial Blood Gas pCO2 37 mmHg (35-46); iSTAT Arterial Blood Gas pH 7.28 (7.35-7.45); iSTAT Arterial Blood Gas pO2 84 mmHg (80-95); iSTAT Carbon Dioxide 18 mmol/L (24-31); iSTAT FiO2 30 %; iSTAT Site R Radial
[2021-07-19] MEDS ORDERED: GLUCAGON FOR INJ 1 MG VIAL IM PRN (20:15)
[2021-07-19] MEDS ORDERED: GLUCOSE 40% GEL 15 GM TUBE PO PRN (20:15)
[2021-07-19] MEDS ORDERED: CARBOHYDRATES FOR HYPOGLYCEMIA PO PRN (20:15)
[2021-07-19] MEDS ORDERED: DEXTROSE 50% 50 ML SYRINGE IV PRN (20:15)
[2021-07-19] MEDS ORDERED: GLUCOSE 10 TABS/TUBE PO PRN (20:15)
[2021-07-19] MEDS ORDERED: ALBUT/IPRATROP 3MG/0.5MG NEB 3 ML VIAL NEB PRN (20:21)
--- NOTE | 2021-07-19 20:24 | Critical Care Consultation ---
Date of Consultation July 19, 2021 Assessment & Plan (1) Acute respiratory failure with hypoxia: Reason Critically Ill: 76-year-old female presents to the ICU following intubation for acute hypoxic respiratory failure after receiving chemotherapy at the cancer center. Neuro - Sedation: Propofol, fentanyl drips Cardiac - Currently hemodynamically stable without vasopressor use. Previously existing left bundle branch block redemonstrated on EKG. Currently sinus rhythm on monitor. -Continuous monitoring on telemetry -Follow-up echo -Mildly elevated troponin, likely demand ischemia. Will trend Respiratory - Acute hypoxic respiratory failureunsure of etiology at this time as could be possible reaction to chemotherapy versus CHF versus infectious process -CTA chest negative for PE. Imaging appears to be more consistent with pulmonary edema -Currently mechanically ventilated,. Plan to leave intubated overnight. Follow-up ABG in a.m. Wean vent as tolerated -Patient received Benadryl prior to arrival to hospital. Continue with IV Solu-Medrol for possible medication reaction -Echo pending to rule out cardiology etiology. We will hold on diuresis for now -Continue broad-spectrum antibiotics, see ID -Continuous monitoring on pulse ox and ET CO2 -Nebs as needed -Follow-up chest x-ray in a.m. GI -patient with ileocolectomy from 04/10/2021 secondary to an inflamed large cecal tubular adenoma. Colostomy present with plans for reversal later on. No issue at this time RENAL/LYTES - CKD stage IIIcreatinine currently at baseline, follow routine BMPs -We will avoid nephrotoxins renally adjust meds -Monitor electrolytes and replete as indicated - Foleystrict I's and O's ENDO - DM type IIpatient currently hyperglycemic and on insulin drip. Expect steroids are contributing. 10 units Lantus given in addition HEME - H&H stable, monitor routine CBCs High-grade serous ovarian cancer of the right ovaryunderwent tumor debulking 04/10/2021. Currently undergoing adjuvant chemotherapy with carboplatin/paclitaxel every 3 weeks. Managed per oncology ID - Cannot rule out infectious process at this time. Pulmonary coverage with azithromycin, cefepime. Nasal MRSA negative. Cultures pending LINES/IV ACCESS - Peripheral IVs DVT PROPHYLAXIS - SCDs, heparin I have personally spent 50 minutes of critical care time in the direct management of this patient. This is a life/limb threatening event. This includes time spent evaluating patient, direct bedside care, chart review, placing orders, interpretation of diagnostic studies, discussion with consultants, patient, and family members, as well as other required patient management activities. This time is exclusive of all separately billable procedures, and teaching time and separate from and in addition to any other critical care service time. Thank you for allowing us to participate in the care of this patient. Please refer to my attending physician's documentation for any further recommendations. (2) CKD (chronic kidney disease), stage III: (3) Acute hyperkalemia: (4) Chronic anemia: (5) Hyponatremia: (6) Elevated troponin: (7) Abnormal LFTs: (8) Chronic cerebral ischemia: (9) Diabetic peripheral neuropathy associated with type 2 diabetes mellitus: (10) Hydronephrosis, bilateral: (11) HTN (hypertension): (12) Type 2 diabetes mellitus: (13) Pelvic mass: (14) Ovarian cancer: History of Present Illness Attending Physician: John Castro History of Present Illness Patient is a 76-year-old female with history of pelvic mass, ovarian cancer (undergoing chemo with carboplatin/paclitaxel), hypertension, DM type II, CKD stage III, cecal tubular adenoma (s/p ileocolectomy) who was undergoing treatment at the [facility] and receiving chemotherapy this afternoon, when she developed worsening shortness of breath. Patient was found by EMS to be in hypoxic respiratory failure and she was intubated at the [facility] and brought to the emergency department. I did speak with the patient's who is with her at the time, and he stated that she had experienced mild shortness of breath a couple of hours prior to arriving at the [facility] center, which worsened significantly during chemo infusion. Patient's states that prior to this she was in her usual state of health. He states that she did not display signs or complaints of illness, fevers, nausea or vomiting, headache or dizziness, shortness of breath, chest pain or palpitations, abdominal pain, swelling in hands or feet. He did state that she took Benadryl prior to infusion along with a dose of steroids (was unsure of the name of steroid). Patient now presents to the ICU intubated and to undergo further care in ICU at this time. Allergies Allergy/AdvReac Type Severity Reaction Status Date / Time oxycodone AdvReac Intermediate "Sick" Verified 07/19/21 16:13 feeling ("I can't eat or go the bathroom") tramadol AdvReac Intermediate "Sick" Verified 07/19/21 16:13 feeling ("I can't eat or go the bathroom") Home Medications Medication Instructions Recorded Confirmed Type cholecalciferol (vitamin D3) 25 1,000 units PO 2XWK 11/17/18 07/19/21 History mcg (1,000 unit) tablet cyanocobalamin (vitamin B-12) 1,000 mcg PO QPM tab 11/17/18 07/19/21 History 1,000 mcg tablet,extended release krill 1 cap PO QPM 11/17/18 07/19/21 History [id number]-jwa-[id number] 300 mg-90 mg-24 mg-50 mg capsule (krill oil) ropinirole 0.25 mg tablet 0.5 mg PO QPM #180 tab 01/22/21 07/19/21 Rx metformin 500 mg tablet,extended 1,000 mg PO BID #360 tab 03/12/21 07/19/21 Rx release 24 hr lisinopril 20 mg tablet 20 mg PO QAM 03/21/21 07/19/21 History Accu-Chek Guide test strips (blood #100 ea NS 06/01/21 07/19/21 Rx sugar diagnostic) glimepiride 2 mg tablet 2 mg PO BID tab 06/04/21 07/19/21 History melatonin 3 mg tablet 9 mg PO HS 06/12/21 07/19/21 History Patient History Medical History Chronic insomnia CKD (chronic kidney disease), stage III Colostomy in place Dyslipidemia HTN (hypertension) Iron deficiency anemia HX TRANSFUSION 04/2021 [facility] [place] Osteoarthritis of left knee Osteoarthritis of right knee Pelvic mass OVARIAN CANCER Peripheral neuropathy Psoriasis Psoriatic arthritis Restless legs syndrome Right knee DJD Type 2 diabetes mellitus Surgical History H/O bilateral cataract extraction H/O colonoscopy 03/2021 History of left knee replacement History of surgery excision ovarian cancer/pelvic mass/ diverting colostomy [facility] [place] Dr. Roque.- 04/10/21 [facility] History of tooth extraction Port-A-Cath in place (06/14/21) Insertion Access Port left subclavian vein with Fluoroscopy(Left) - [place] Lyles, Family History Mother Brain tumor Father Kidney disease Grandmother Diabetes Other No family history of adverse response to anesthesia Denies family history of Ovarian cancer Prostate cancer Myocardial infarction Breast cancer Lung cancer Colorectal cancer Social History Smoking Status: Unknown if ever smoked Second Hand Exposure: No; Hx Alcohol Use: No Hx Substance Use: No Preferred Language: Citizen Of [place] Communication Ability: Effective Visual Impairment: No Limitations Hearing Ability: Normal Slitter Creaser Slotter Helper Required: No Beliefs That Will Affect Care: None marital status: Current Living Situation: Spouse current occupational status: retired How many Children do You have: 1 Feels Safe at Home: Yes Childhood Exposure to Second-Hand Smoke: No caffeine: Yes Dental Care, Regularly: Yes Physical Activity Frequency: Does not Exercise Seatbelt Use: always Sunscreen Use: Yes Do you think of yourself as: straight/heterosexual Assistive Devices: Cane and Denture - Upper Review of Systems Review of Systems: Unobtainable due to endotracheal tube Physical Exam Constitutional: + mechanically ventilated sedated Eyes: PERRL, conjunctivae normal, anicteric sclerae ENMT: external ear and nose normal, oropharynx normal Neck: trachea midline, no thyromegaly Respiratory: Symmetrical chest wall movement, crackles auscultated bilaterally in bases Cardiovascular: RRR, no murmur, no edema Heart Sounds: normal S1 and normal S2; no murmur Extremities: normal capillary refill; no pedal edema Gastrointestinal (Abdomen): Ileostomy appears pink without cyanosis, formed stool in ostomy bag. Bowel sounds auscultated all 4 quadrants Musculoskeletal: no cyanosis or clubbing, extremities motor strength 5/5 Skin: no rashes, warm and dry Neurologic: PERRL, EOMI, accommodation nl, no face palsy, no dysarthria Psychiatric: A+Ox3, euthymic affect Results & Data Results & Data ([facility]) Vital Signs (Past 12 Hours) Vital Signs Temp Pulse Pulse Resp BP BP Pulse Ox 07/19/21 19:55 74 16 96 07/19/21 18:53 88 18 98 07/19/21 18:18 88 16 119/67 99 07/19/21 18:06 88 16 120/73 99 07/19/21 17:49 94 H 16 144/85 H 99 07/19/21 17:33 94 H 16 137/82 99 07/19/21 17:15 95 H 16 134/79 99 07/19/21 17:01 93 H 16 130/72 97 07/19/21 16:48 95 H 16 144/75 H 96 07/19/21 16:03 100 H 16 96 07/19/21 16:01 98 H 16 138/73 97 07/19/21 15:07 16 98 07/19/21 14:49 36.8 C 105 H 16 154/88 H 99 Coding Level of Care Code Critical Care 1st 30-74 mins Diagnoses Acute respiratory failure with hypoxia J96.01 CKD (chronic kidney disease), stage III N18.30 Chronic kidney disease stage 3 subtype: unspecified whether 3a or 3b Acute hyperkalemia E87.5 Chronic anemia D64.9 Hyponatremia E87.1 Elevated troponin R77.8 Abnormal LFTs R79.89 Chronic cerebral ischemia I67.82 Diabetic peripheral neuropathy associated with type 2 diabetes mellitus E11.42 Hydronephrosis, bilateral N13.30 HTN (hypertension) I10 Hypertension type: essential hypertension Type 2 diabetes mellitus E11.9 Diabetes mellitus complication status: without complication Diabetes mellitus senior living insulin use: without intermediate card tender use Pelvic mass R19.00 Ovarian cancer C56.9 (1) Type 2 diabetes mellitus Diabetes mellitus complication status: without complication Diabetes mellitus intermediate card tender insulin use: without senior living use Qualified Code(s): E11.9 - Type 2 diabetes mellitus without complications (2) CKD (chronic kidney disease), stage III Chronic kidney disease stage 3 subtype: unspecified whether 3a or 3b Qualified Code(s): N18.30 - Chronic kidney disease, stage 3 unspecified (3) HTN (hypertension) Hypertension type: essential hypertension Qualified Code(s): I10 - Essential (primary) hypertension
[2021-07-19] MEDS ORDERED: INSULIN HUMAN REGULAR IV BOLUS 3 UNITS in SYRINGE 0 ML IV ONE (20:30)
[2021-07-19] MEDS ORDERED: INSULIN HUMAN REGULAR IV BOLUS 2 UNITS in SYRINGE 0 ML IV ONE (20:30)
[2021-07-19] MEDS ORDERED: rOPINIRole HCL 0.25 MG TABLET PO SCH (21:00)
[2021-07-19] MEDS ORDERED: CYANOCOBALAMIN (B-12) 500 MCG TABLET PO SCH (21:00)
[2021-07-19 21:08] LABS: Hematocrit (blood only) 27.3 % (37-47); Hemoglobin 9.1 g/dL (12.0-16.0); Immature Granulocytes # (auto) 0.05 K/uL (0.00-0.02); Immature Granulocytes % (auto) 0.7 %; Lymphocytes # (auto) 0.54 K/uL (1.2-3.4); Lymphocytes % (auto) 7.1 %; Mean Corpuscular Hemoglobin 30.1 pg (25-34); Mean Corpuscular Hgb Conc 33.3 g/dL (32-36); Mean Corpuscular Volume 90.4 fL (80-100); Mean Platelet Volume 8.4 fL (7.4-10.4); Monocytes # (auto) 0.43 K/uL (0.11-0.59); Monocytes % (auto) 5.7 %; Neutrophils # (auto) 6.56 K/uL (1.4-6.5); Neutrophils % (auto) 86.5 %; Platelet Count 154 K/uL (130-400); RDW Standard Deviation 59.1 fL (36.4-46.3); Red Blood Count 3.02 M/uL (4.2-5.4); White Blood Count 7.58 K/uL (4.8-10.8)
[2021-07-19] MEDS: CEFEPIME 2,000 MG in SYRINGE 0 ML IV SCH (21:13)
[2021-07-19] MEDS ORDERED: INSULIN GLARGINE SOLOSTAR 100 UNITS/ML 3 ML PEN SC ONE (21:15)
[2021-07-19] MEDS: methylPREDNISolone 60 MG in SYRINGE 0 ML IV SCH (21:20)
[2021-07-19 21:22] LABS: BUN Creatinine Ratio 28.6 (10-20); Calcium 8.3 mg/dl (8.5-10.1); Creatinine Clr Calc Pharmacy 32.1 ml/min; Est GFR (African American) 42.5 ml/min; Est GFR (Non-African American) 36.7 ml/min; Potassium 4.8 mmol/L (3.5-5.1)
[2021-07-19] MEDS: INSULIN ASPART PER UNIT SC SCH (21:35)
[2021-07-20 02:25] LABS: Hematocrit (blood only) 25.5 % (37-47); Hemoglobin 8.7 g/dL (12.0-16.0); Mean Corpuscular Hemoglobin 29.9 pg (25-34); Mean Corpuscular Hgb Conc 34.1 g/dL (32-36); Mean Corpuscular Volume 87.6 fL (80-100); Mean Platelet Volume 8.2 fL (7.4-10.4); Platelet Count 138 K/uL (130-400); RDW Coefficient of Variation 18.1 % (11.5-14.5); RDW Standard Deviation 57.4 fL (36.4-46.3); Red Blood Count 2.91 M/uL (4.2-5.4); White Blood Count 6.69 K/uL (4.8-10.8)
[2021-07-20 02:51] LABS: BUN Creatinine Ratio 31.1 (10-20); Creatinine Clr Calc Pharmacy 29.6 ml/min; Est GFR (African American) 39.7 ml/min; Est GFR (Non-African American) 34.3 ml/min; Magnesium 1.8 mg/dl (1.7-2.4); Phosphorus 3.3 mg/dl (2.5-4.9); Potassium 4.6 mmol/L (3.5-5.1)
[2021-07-20 02:55] LABS: Immature Granulocytes # (auto) 0.04 K/uL (0.00-0.02); Immature Granulocytes % (auto) 0.6 %; Lymphocytes # (auto) 0.52 K/uL (1.2-3.4); Lymphocytes % (auto) 7.8 %; Monocytes # (auto) 0.14 K/uL (0.11-0.59); Monocytes % (auto) 2.1 %; Neutrophils # (auto) 5.99 K/uL (1.4-6.5); Neutrophils % (auto) 89.5 %
[2021-07-20 03:19] LABS: Troponin I High Sensitivity 140.7 pg/ml (0-14)
[2021-07-20] MEDS: MAGNESIUM SULFATE / D5W 1 GM/100 ML BAG IV SCH ×2 (03:43→05:34)
[2021-07-20] MEDS: propofoL 1,000 MG/100 ML VIAL IV SCH ×3 (04:14→08:48)
[2021-07-20 04:26] LABS: iSTAT Allen Test Pass; iSTAT Arterial Blood Gas HCO3 16 meg/L (19-24); iSTAT Arterial Blood Gas pCO2 28 mmHg (35-46); iSTAT Arterial Blood Gas pH 7.37 (7.35-7.45); iSTAT Arterial Blood Gas pO2 112 mmHg (80-95); iSTAT Carbon Dioxide 17 mmol/L (24-31); iSTAT FiO2 30 %; iSTAT Site R Brachial
[2021-07-20] MEDS: methylPREDNISolone 60 MG in SYRINGE 0 ML IV SCH (05:47)
[2021-07-20] MEDS: lisinopril 20 MG TAB PO SCH ×2 (08:07→09:51)
[2021-07-20] MEDS: CEFEPIME 2,000 MG in SYRINGE 0 ML IV SCH (08:07)
--- NOTE | 2021-07-20 08:09 | XRay Report ---
XR chest 1V portable HISTORY: 76 years-old Female Resp failure acute respiratory failure COMPARISON: Chest radiograph and CTA chest study 07/19/2021 TECHNIQUE: Portable AP view of the chest FINDINGS: Unchanged positioning of the endotracheal tube and left subclavian Wqdkji-e-Bsul catheter. Cardiac si lhouette is mildly enlarged. There is moderately improved pulmonary edema. Trace pleural effusions wi th mild persistent bibasilar opacities. No pneumothorax. Bones appear grossly intact. IMPRESSION: 1. Stable positioning of the life-support lines and tubes. No pneumothorax. 2. Cardiomegaly with mildly improved pulmonary edema. 3. Trace pleural effusions with mild persistent bibasilar opacities. ACT 112: Negative or not required by law. The above report was generated using voice recognition software. It may contain grammatical, syntax o r spelling errors. Electronically signed by: Mario Pires M.D. 07/20/2021 8:08 AM
[2021-07-20] MEDS: INSULIN ASPART PER UNIT SC SCH ×3 (08:22→16:40)
[2021-07-20 08:48] LABS: Estimated Average Glucose 163 mg/dl; Hemoglobin A1C 7.3 % (4.5-5.6)
--- NOTE | 2021-07-20 08:53 | Pharmacy Report ---
Pharmacy Glycemic Short Note 2 - Date of Service July 20, 2021 - Glycemic Short BSG Results (Last 24 hours): 07/19/21 07/19/21 07/19/21 14:59 15:04 15:06 Glucose 432 H* POC Glucose 459 H* POC Glucose (other) TNP 07/19/21 07/19/21 07/19/21 16:56 17:38 19:50 Glucose POC Glucose 408 H* 373 H* 287 H POC Glucose (other) 07/19/21 07/19/21 07/20/21 20:51 23:06 00:03 Glucose 288 H POC Glucose 367 H* 333 H* POC Glucose (other) 07/20/21 07/20/21 07/20/21 01:00 02:01 02:04 Glucose 231 H POC Glucose 291 H 275 H POC Glucose (other) 07/20/21 07/20/21 07/20/21 03:00 04:08 05:56 Glucose POC Glucose 229 H 211 H 167 H POC Glucose (other) 07/20/21 07/20/21 07:52 08:31 Glucose POC Glucose 111 H 104 H POC Glucose (other) OUTPATIENT ANTIDIABETIC REGIMEN: * Metformin * Glimepiride * HbA1c was 7.3% on 07/20/21 ASSESSMENT: * 76 yo F w T2DM receiving chemotherapy for ovarian CA admitted 07/19 with acute respiratory failure s/p intubation that occurred during her chemo infusion. Patient is now extubated, steroids have been stopped, diet has been ordered, and per ICU rounds, patient will be downgraded from ICU status today and may even be discharged. * Insulin drip initiated for BSG > 400 mg/dL on admission. Drip was titrated up overnight up to 4.3 units/hr but has been titrating down this AM and has now been on hold for ~1 hour with BSG's remaining stable in the low 100's. OK per Dr. Lemus to stop insulin drip * Low dose of Lantus (10 units) was started yesterday evening to help with eventual transition off of the insulin drip. Will continue Lantus, but very low dose given significant decrease in stressors plus possible discharge later today * Will initiate Novolog at slightly tighter than weight-based moderate stress esimtate due to persistence of effect of methylprednisolone administered this AM PLAN FOR INPATIENT GLYCEMIC CONTROL: * Hold outpatient oral diabetes medications * Basal insulin * Lantus 8 units SQ x1 now. Additional 0-12 units tonight depending on BSG * Bolus insulin * NovoLog per scale ACHS or Q6hrs while NPO * Goal Range: Low 110 mg/dL - High 140 mg/dL * Correction Factor: 30 mg/dL/unit * Nutritional / Prandial insulin per carb ratio of 1 unit per 10 grams CHO consumed
[2021-07-20] MEDS ORDERED: HEPARIN SOD 5,000 UNIT/0.5 ML VIAL SQ SCH (09:00)
--- NOTE | 2021-07-20 09:36 | Critical Care Progress Note ---
Date of Service July 20, 2021 Assessment & Plan (1) Acute respiratory failure with hypoxia: Plan: Reason Critically Ill: 76-year-old female presents to the ICU following intubation for acute hypoxic respiratory failure after receiving chemotherapy at the cancer center. Neuro - Sedation: Discontinue Propofol, fentanyl drips Cardiac - Currently hemodynamically stable without vasopressor use. Previously existing left bundle branch block redemonstrated on EKG. Currently sinus rhythm on monitor. -Continuous monitoring on telemetry -Follow-up echo -Mildly elevated troponin, likely demand ischemia. Respiratory - Acute hypoxic respiratory failureunsure of etiology at this time as could be possible reaction to chemotherapy versus CHF versus infectious process -CTA chest negative for PE. Imaging appears to be more consistent with pulmonary edema -Extubated this morning -Discontinue steroids -Echo pending to rule out cardiology etiology. 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 Colostomy present with plans for reversal later on. No issue at this time RENAL/LYTES - CKD stage IIIcreatinine currently at baseline, follow routine BMPs -We will avoid nephrotoxins renally adjust meds -Monitor electrolytes and replete as indicated - FoleyDiscontinue today ENDO - DM type IIpatient currently hyperglycemic and on insulin drip. Expect steroids are contributing. 10 units Lantus given in addition: transition off infusion HEME - H&H stable, monitor routine CBCs High-grade serous ovarian cancer of the right ovaryunderwent tumor debulking 04/10/2021. Currently undergoing adjuvant chemotherapy with carboplatin/paclitaxel every 3 weeks. Managed per oncology ID - Discontinue antibiotics LINES/IV ACCESS - Peripheral IVs DVT PROPHYLAXIS - SCDs, heparin Likely able to be downgraded later today. (2) CKD (chronic kidney disease), stage III: (3) Acute hyperkalemia: (4) Chronic anemia: (5) Hyponatremia: (6) Elevated troponin: (7) Abnormal LFTs: (8) Chronic cerebral ischemia: (9) Diabetic peripheral neuropathy associated with type 2 diabetes mellitus: (10) Hydronephrosis, bilateral: (11) HTN (hypertension): (12) Type 2 diabetes mellitus: (13) Pelvic mass: (14) Ovarian cancer: Admission and Anticipated Discharge Date Admission Date: July 19, 2021 Subjective Following simple commands, extubated this morning Physical Exam Physical Exam: General: Sedated, following simple nontoxic. Skin: Warm, dry, Head: Atraumatic Ears, nose, mouth and throat: airway obscured by endotracheal tube Cardiovascular: Normal peripheral perfusion Respiratory: Ventilator settings reviewed Gastrointestinal: Non distended Musculoskeletal: No deformity Results & Data Results & Data ([facility]) Vital Signs (Past 12 Hours) Vital Signs Temp Pulse Pulse Resp BP BP Pulse Ox 07/20/21 08:40 85 20 99 07/20/21 08:14 36.4 C L 81 20 114/79 97 07/20/21 08:08 36.4 C L 77 6 L 102/69 98 07/20/21 08:00 36.4 C L 79 18 101/68 98 07/20/21 07:25 76 18 97 07/20/21 07:00 36.5 C 76 16 100/71 98 07/20/21 06:00 36.6 C 75 18 100/64 98 07/20/21 05:50 36.6 C 75 18 98 07/20/21 05:40 36.6 C 76 18 97 07/20/21 05:30 36.6 C 74 18 97 07/20/21 05:20 36.6 C 77 18 97 07/20/21 05:10 36.6 C 74 18 97 07/20/21 05:00 36.6 C 75 18 90/62 L 97 07/20/21 04:50 36.6 C 75 18 97 07/20/21 04:40 36.6 C 75 16 97 07/20/21 04:30 36.6 C 76 16 97 07/20/21 04:20 36.6 C 77 16 97 07/20/21 04:10 36.6 C 76 14 98 07/20/21 04:08 75 16 96 07/20/21 04:00 36.6 C 76 16 90/65 L 99 07/20/21 03:50 36.6 C 74 16 99 07/20/21 03:40 36.6 C 76 16 99 07/20/21 03:30 36.6 C 77 16 99 07/20/21 03:20 36.6 C 76 16 98 07/20/21 03:10 36.6 C 81 16 100 07/20/21 03:00 36.6 C 77 16 102/65 99 07/20/21 02:50 36.5 C 77 16 99 07/20/21 02:40 36.5 C 77 16 99 07/20/21 02:30 36.5 C 76 16 99 07/20/21 02:20 36.5 C 76 16 99 07/20/21 02:10 36.6 C 77 16 99 07/20/21 02:00 36.7 C 77 16 107/66 99 07/20/21 01:50 36.7 C 75 16 99 07/20/21 01:40 36.7 C 77 16 99 07/20/21 01:30 36.7 C 77 16 99 07/20/21 01:20 36.7 C 77 16 99 07/20/21 01:10 36.8 C 78 12 99 07/20/21 01:00 36.8 C 77 16 100/66 99 07/20/21 00:50 36.8 C 79 14 99 07/20/21 00:40 36.8 C 77 16 99 07/20/21 00:30 36.8 C 78 16 99 07/20/21 00:20 36.8 C 79 17 99 07/20/21 00:10 36.8 C 77 16 99 07/20/21 00:00 36.8 C 79 16 101/67 99 07/19/21 23:50 36.8 C 79 17 99 07/19/21 23:40 36.8 C 79 16 99 07/19/21 23:30 36.8 C 82 16 99 07/19/21 23:20 36.8 C 83 14 99 07/19/21 23:10 36.8 C 81 2 L 99 07/19/21 23:00 36.8 C 81 16 97/65 L 99 07/19/21 22:50 36.8 C 82 16 99 07/19/21 22:46 36.8 C 82 16 93/62 L 99 07/19/21 22:40 36.8 C 82 16 99 07/19/21 22:30 36.8 C 82 16 98 07/19/21 22:20 84 16 98 07/19/21 22:18 82 16 98 07/19/21 22:10 82 16 99 07/19/21 22:00 82 14 93/62 L 98 07/19/21 21:50 120 H 16 98 07/19/21 21:40 125 H 16 98 Critical Care Results & Data Vital Signs (Past 12 Hours) Vital Signs Temp Pulse Pulse Resp BP BP Pulse Ox 07/20/21 08:40 85 20 99 07/20/21 08:14 36.4 C L 81 20 114/79 97 07/20/21 08:08 36.4 C L 77 6 L 102/69 98 07/20/21 08:00 36.4 C L 79 18 101/68 98 07/20/21 07:25 76 18 97 07/20/21 07:00 36.5 C 76 16 100/71 98 07/20/21 06:00 36.6 C 75 18 100/64 98 07/20/21 05:50 36.6 C 75 18 98 07/20/21 05:40 36.6 C 76 18 97 07/20/21 05:30 36.6 C 74 18 97 07/20/21 05:20 36.6 C 77 18 97 07/20/21 05:10 36.6 C 74 18 97 07/20/21 05:00 36.6 C 75 18 90/62 L 97 07/20/21 04:50 36.6 C 75 18 97 07/20/21 04:40 36.6 C 75 16 97 07/20/21 04:30 36.6 C 76 16 97 07/20/21 04:20 36.6 C 77 16 97 07/20/21 04:10 36.6 C 76 14 98 07/20/21 04:08 75 16 96 07/20/21 04:00 36.6 C 76 16 90/65 L 99 07/20/21 03:50 36.6 C 74 16 99 07/20/21 03:40 36.6 C 76 16 99 07/20/21 03:30 36.6 C 77 16 99 07/20/21 03:20 36.6 C 76 16 98 07/20/21 03:10 36.6 C 81 16 100 07/20/21 03:00 36.6 C 77 16 102/65 99 07/20/21 02:50 36.5 C 77 16 99 07/20/21 02:40 36.5 C 77 16 99 07/20/21 02:30 36.5 C 76 16 99 07/20/21 02:20 36.5 C 76 16 99 07/20/21 02:10 36.6 C 77 16 99 07/20/21 02:00 36.7 C 77 16 107/66 99 07/20/21 01:50 36.7 C 75 16 99 07/20/21 01:40 36.7 C 77 16 99 07/20/21 01:30 36.7 C 77 16 99 07/20/21 01:20 36.7 C 77 16 99 07/20/21 01:10 36.8 C 78 12 99 07/20/21 01:00 36.8 C 77 16 100/66 99 07/20/21 00:50 36.8 C 79 14 99 07/20/21 00:40 36.8 C 77 16 99 07/20/21 00:30 36.8 C 78 16 99 07/20/21 00:20 36.8 C 79 17 99 07/20/21 00:10 36.8 C 77 16 99 07/20/21 00:00 36.8 C 79 16 101/67 99 07/19/21 23:50 36.8 C 79 17 99 07/19/21 23:40 36.8 C 79 16 99 07/19/21 23:30 36.8 C 82 16 99 07/19/21 23:20 36.8 C 83 14 99 07/19/21 23:10 36.8 C 81 2 L 99 07/19/21 23:00 36.8 C 81 16 97/65 L 99 07/19/21 22:50 36.8 C 82 16 99 07/19/21 22:46 36.8 C 82 16 93/62 L 99 07/19/21 22:40 36.8 C 82 16 99 07/19/21 22:30 36.8 C 82 16 98 07/19/21 22:20 84 16 98 07/19/21 22:18 82 16 98 07/19/21 22:10 82 16 99 07/19/21 22:00 82 14 93/62 L 98 07/19/21 21:50 120 H 16 98 07/19/21 21:40 125 H 16 98 Lab & Micro Results (Past 24 Hours) RBC 2.91 M/uL (4.2-5.4) L 07/20/21 WBC 6.69 K/uL (4.8-10.8) 07/20/21 Hgb 8.7 g/dL (12.0-16.0) L 07/20/21 Hct 25.5 % (37-47) L 07/20/21 MCV 87.6 fL (80-100) 07/20/21 MCH 29.9 pg (25-34) 07/20/21 MCHC 34.1 g/dL (32-36) 07/20/21 RDW Standard Deviation 57.4 fL (36.4-46.3) H 07/20/21 RDW Coefficient of Variation 18.1 % (11.5-14.5) H 07/20/21 Plt Count 138 K/uL (130-400) 07/20/21 MPV 8.2 fL (7.4-10.4) 07/20/21 Neutrophils (%) (Auto) 89.5 % 07/20/21 Lymphocytes (%) (Auto) 7.8 % 07/20/21 Monocytes # (Auto) 0.14 K/uL (0.11-0.59) 07/20/21 Eosinophils # (Auto) 0.00 K/uL (0-0.5) 07/20/21 Immature Granulocyte % (Auto) 0.6 % 07/20/21 Neutrophils # (Auto) 5.99 K/uL (1.4-6.5) 07/20/21 Lymphocytes # (Auto) 0.52 K/uL (1.2-3.4) L 07/20/21 Monocytes # (Auto) 0.14 K/uL (0.11-0.59) 07/20/21 Eosinophils # (Auto) 0.00 K/uL (0-0.5) 07/20/21 Basophils # (Auto) 0.00 K/uL (0-0.2) 07/20/21 Immature Granulocyte # (Auto) 0.04 K/uL (0.00-0.02) H 07/20/21 Na 132 mmol/L (136-145) L 07/20/21 K 4.6 mmol/L (3.5-5.1) 07/20/21 Cl 104 mmol/L (98-107) 07/20/21 CO2 18 mmol/L (21-32) L 07/20/21 Anion Gap 10 (3-11) 07/20/21 BUN 46 mg/dl (6-23) H 07/20/21 Creatinine 1.48 mg/dl (0.6-1.2) H 07/20/21 Estimated GFR ( Amer) 39.7 ml/min 07/20/21 Estimated GFR (Non-Af Amer) 34.3 ml/min 07/20/21 BUN/Creatinine Ratio 31.1 (10-20) H 07/20/21 Glu 231 mg/dl (70-99(Fasting)) H 07/20/21 Ca 8.0 mg/dl (8.5-10.1) L 07/20/21 Phosphorus Level 3.3 mg/dl (2.5-4.9) 07/20/21 Total Bilirubin 0.5 mg/dl (0.2-1.0) 07/19/21 AST 111 U/L (13-39) H 07/19/21 ALT 115 U/L (7-52) H 07/19/21 Alkaline Phosphatase 245 U/L (34-104) H 07/19/21 TP 7.5 gm/dl (6.0-8.3) 07/19/21 Albumin 3.8 gm/dl (3.4-5.0) 07/19/21 Globulin 3.7 gm/dl (2.5-4.0) 07/19/21 Albumin/Globulin Ratio 1.0 (0.9-2) 07/19/21 Mg 1.8 mg/dl (1.7-2.4) 07/20/21 02:04 07/20/21 Calcium Level 8.0 mg/dl (8.5-10.1) L 07/20/21 02:04 07/20/21 Prothromb Time International Ratio 1.0 (0.9-1.1) 07/19/21 15:20 07/19/21 Tramaine Test Pass 07/20/21 04:05 07/20/21 Microbiology 07/20/21 03:10 Gram Stain - Final Sputum,Vent Suction Diagnostic Findings (Past 24 Hours) Head CT 07/19/21 14:54 CT SCAN OF THE BRAIN WITHOUT IV CONTRAST CLINICAL HISTORY: Change in mental status. COMPARISON STUDY: No priors. TECHNIQUE: Unenhanced axial CT scan of the brain is performed from the vertex to the skull base. A dose lowering technique was utilized adhering to the principles of ALARA. FINDINGS: An endotracheal tube is noted on the piping engineer tomogram. Brain parenchyma: There is age-related involutional change noting mild subcortical and periventricular microangiopathic disease. There is no hemorrhage, mass effect, or evidence of acute territorial ischemia by CT criteria. Villeda-white matter differentiation is preserved. No extra-axial fluid collection is seen. Ventricles, sulci, cisterns: Prominent secondary to involutional change. Intracranial vasculature: There is mild atherosclerotic calcification of the cavernous carotid arteries. Calvarium: Unremarkable. Sinuses and mastoids: The visualized paranasal sinuses are clear. The mastoid air cells are well pneumatized. Orbits: The bony orbits are grossly intact. There are bilateral ocular lens implants. IMPRESSION: There is no hemorrhage, mass effect, or evidence of acute territorial ischemia by CT criteria. ACT 112: Negative or not required by law. Electronically signed by: Jason Santana M.D. 07/19/2021 3:47 PM Chest CTA 07/19/21 14:55 CT ANGIOGRAPHY OF THE CHEST, PULMONARY EMBOLUS PROTOCOL CLINICAL HISTORY: Dyspnea. COMPARISON STUDY: Chest CT March 30, 2021. Chest radiograph performed earlier today. TECHNIQUE: Following IV administration of 120 mL of Optiray, helical axial images of the chest were obtained utilizing the pulmonary embolus protocol. Maximal intensity projections and sagittal and coronal reformats were viewed on an independent 3D workstation. IV contrast was administered without complication. Automated exposure control was utilized for the study. A dose lowering technique was utilized adhering to the principles of ALARA. CT DOSE: 1204.01 mGy.cm FINDINGS: No pulmonary emboli are identified although segmental and subsegmental pulmonary arteries are suboptimally assessed due to respiratory motion. There is no thoracic aortic dissection. Mild cardiomegaly is noted. No thoracic lymphadenopathy is present. There are small bilateral pleural effusions. There is no pneumothorax. Extensive interlobular septal thickening is noted. There are also moderate airspace opacities throughout the lungs. These are most pronounced within the lower lobes. Visualized portions of the upper abdomen are unremarkable. Tip of endotracheal tube is just above the samm. Left subclavian Djopqk-e-Bekw is in place. IMPRESSION: 1. No pulmonary emboli identified although exam mildly compromised by respiratory motion artifact. 2. Moderate to severe interstitial pulmonary edema. Airspace opacities could reflect alveolar pulmonary edema. However, superimposed aspiration pneumonitis or an infectious process is also within the differential. 3. Mild cardiomegaly. 4. Small bilateral pleural effusions. 5. Tip of endotracheal tube just above the samm. ACT 112: Negative or not required by law. Electronically signed by: Lemuel Guzmán M.D. 07/19/2021 3:51 PM Chest X-Ray 07/19/21 14:55 SINGLE VIEW CHEST CLINICAL HISTORY: Dyspnea. Respiratory failure. FINDINGS: 2 AP, portable, supine chest radiographs are compared to study dated 06/14/2021. The examination is degraded by portable technique and patient rotation. A left subclavian central venous infusion port is unchanged in position. An endotracheal tube has been placed. The tip projects approximately 2.5 cm above the samm The heart is enlarged noting atherosclerotic calcification of the thoracic aorta. There is pulmonary vascular congestion. Perihilar airspace opacities likely represent pulmonary edema. No large pleural effusion or pneumothorax is seen. The skeletal structures are osteopenic. The bony thorax is grossly intact. IMPRESSION: 1. An endotracheal tube has been placed as above. 2. Cardiomegaly with evidence of congestive failure. 3. Extensive bilateral perihilar airspace opacities likely represent pulmonary edema. Correlate clinically for evidence of a superimposed infectious/inflammatory pneumonitis. ACT 112: Negative or not required by law. Electronically signed by: Jason Santana M.D. 07/19/2021 3:13 PM Chest X-Ray 07/20/21 07:00 XR chest 1V portable HISTORY: 76 years-old Female Resp failure acute respiratory failure COMPARISON: Chest radiograph and CTA chest study 07/19/2021 TECHNIQUE: Portable AP view of the chest FINDINGS: Unchanged positioning of the endotracheal tube and left subclavian Cjiady-k-Ulxn catheter. Cardiac silhouette is mildly enlarged. There is moderately improved pulmonary edema. Trace pleural effusions with mild persistent bibasilar opacities. No pneumothorax. Bones appear grossly intact. IMPRESSION: 1. Stable positioning of the life-support lines and tubes. No pneumothorax. 2. Cardiomegaly with mildly improved pulmonary edema. 3. Trace pleural effusions with mild persistent bibasilar opacities. ACT 112: Negative or not required by law. The above report was generated using voice recognition software. It may contain grammatical, syntax or spelling errors. Electronically signed by: Mario Pires M.D. 07/20/2021 8:08 AM I & O Totals 24 Hours 07/19/21 07/20/21 07/21/21 06:59 06:59 06:59 Intake Total 557.239 / 557.239 216.356 / 216.356 Output Total 1651 / 1651 Balance -1093.761 / -1093.761 216.356 / 216.356 Cumulative 07/19/21 14:22 thru 07/20/21 08:49 Intake Total 773.595 Output Total 1651 Balance -877.405 RT Ventilator Mngmt (Last Documented) Ventilator Ordered Settings Ventilator Support Mode CPAP 07/20/21 08:55 Respiratory Rate 20 07/20/21 08:40 Ventilator Tidal Volume 350 07/20/21 07:25 Setting Minute Ventilation 11.9 07/20/21 08:40 Ventilator Positive Pressure 5 07/20/21 08:55 Support Setting Positive End Expiratory 5 07/20/21 08:55 Pressure Fraction of Inspired Oxygen 25 07/20/21 08:55 Machine Comment Changes made earlier by 07/20/21 08:40 Allan. Ventilator - PT Measurements Respiratory Rate 20 Exhaled Tidal Volume 536 Minute Ventilation 11.9 Peak Inspiratory Airway 11 Pressure Plateau Pressure 14 Respiratory Cycle Inspiratory: 1:2.7 Expiratory Ratio Inspiratory Phase Time 0.9 End-Tidal CO2 31 Static Lung Compliance 38.89 Dynamic Lung Compliance 89.33 Normal Static Lung Compliance 49.00 Patient Measurements Comment Patient extubated per verbal order from Dr. Lemus. Patient tolerated extubation very well. Placed on a 4 L/M nasal cannula with humidity. Will wean as appropriate. Nurse at bedside assisting. Coding Level of Care Code 85860 Subseq Hosp Care Lvl 3 Diagnoses Acute respiratory failure with hypoxia J96.01 CKD (chronic kidney disease), stage III N18.30 Chronic kidney disease stage 3 subtype: unspecified whether 3a or 3b Acute hyperkalemia E87.5 Chronic anemia D64.9 Hyponatremia E87.1 Elevated troponin R77.8 Abnormal LFTs R79.89 Chronic cerebral ischemia I67.82 Diabetic peripheral neuropathy associated with type 2 diabetes mellitus E11.42 Hydronephrosis, bilateral N13.30 HTN (hypertension) I10 Hypertension type: essential hypertension Type 2 diabetes mellitus E11.9 Diabetes mellitus termite treater insulin use: without termite treater use Diabetes mellitus complication status: without complication Pelvic mass R19.00 Ovarian cancer C56.9 (1) CKD (chronic kidney disease), stage III Chronic kidney disease stage 3 subtype: unspecified whether 3a or 3b Qualified Code(s): N18.30 - Chronic kidney disease, stage 3 unspecified (2) HTN (hypertension) Hypertension type: essential hypertension Qualified Code(s): I10 - Essential (primary) hypertension (3) Type 2 diabetes mellitus Diabetes mellitus termite treater insulin use: without termite treater use Diabetes mellitus complication status: without complication Qualified Code(s): E11.9 - Type 2 diabetes mellitus without complications
[2021-07-20] MEDS ORDERED: INSULIN GLARGINE SOLOSTAR 100 UNITS/ML 3 ML PEN SC ONE ×2 (10:15→21:00)
--- NOTE | 2021-07-20 12:33 | CT Scan Report ---
CT chest diagnostic wo con CT DOSE: 241.24 mGycm CLINICAL HISTORY: 76 years-old Female with Hypoxemia, concern for interstitial pneumonitis. Acute hy poxia. TECHNIQUE: Multiaxial CT images of the chest were performed without contrast. A dose lowering techni que was utilized adhering to the principles of ALARA. COMPARISON: CTA chest 07/19/2021. FINDINGS: Unremarkable thyroid. Left subclavian Lojpxc-x-Shtk catheter distal tip terminates within the SVC. In terval extubation. The heart is moderately enlarged. Trace pericardial effusion. Atherosclerosis of t he aorta without aneurysm. Small to moderate size layering pleural effusions have increased in size f rom prior. Bibasilar predominant and mostly linear alveolar opacities are noted with intermixed bilat eral groundglass densities. As discussed on the same day chest radiograph, the interstitial and alveo lar pulmonary edema has improved from yesterday's study. The central airways are patent. No suspiciou s pulmonary nodules are identified. Contrast is noted within the left renal collecting system. No acute process of the imaged upper abdom en. The partially imaged right kidney may be mildly atrophic. Unremarkable soft tissues. Degenerative changes of the shoulders and spine. IMPRESSION: 1. Interval extubation. 2. Cardiomegaly with improved interstitial and alveolar pulmonary edema. 3. Small to moderate pleural effusions have increased in size from yesterday's study. Bibasilar conso lidative opacities favor atelectasis, however an infectious or inflammatory pneumonitis could appear similarly. ACT 112: Negative or not required by law. Dictated: 07/20/2021 11:55 AM Transcribed: 07/20/2021 12:22 PM Kelsi [id number] [email or web address] Electronically signed by: Mario Pires M.D. 07/20/2021 12:32 PM
--- NOTE | 2021-07-20 13:40 | XCELERA ---
[id number]
[2021-07-20] MEDS ORDERED: CHOLECALCIFEROL 1,000 UNITS 25 MCG TAB PO SCH (14:00)
--- NOTE | 2021-07-20 17:11 | Cardiology Consultation ---
Date of Consultation July 20, 2021 Assessment & Plan (1) Acute respiratory failure with hypoxia: (2) Elevated troponin: (3) Cardiomyopathy: (4) Mitral regurgitation: 1. Respiratory failure: Secondary to pulmonary edema. It is very possible that she developed acute pulmonary edema secondary to the volume infusion associated with her chemotherapy. She seemed to have some element of dyspnea leading up to the infusion which worsened significantly at that time. She still has an element of pulmonary edema although quite mild. She will require some additional diuresis. This could be performed in the outpatient setting with close monitoring. 2. Cardiomyopathy: This is of unclear duration. She has no known history of significant cardiac disease. She did not describe symptoms of decompensated failure leading up to yesterday. I suppose it is possible that this happened acutely. This could be an atypical form of a stress cardiomyopathy. She does admit to being quite anxious about chemotherapy given her experience with her 1st to infusions. However, the regional wall motion abnormalities are not classic for stress cardiomyopathy. She did not endorse symptoms of ischemic heart disease. However, I think in the absence of rapid improvement she should consider coronary angiography. This could be arranged on an outpatient basis. Will start her back on metoprolol succinate. She can continue her lisinopril. 3. Elevated troponin: Mildly elevated due to her hypoxic respiratory failure. Not indicative of an acute coronary syndrome. Certainly not consistent with development of a recent or acute cardiomyopathy. 4. Mitral regurgitation: Moderate. This can be monitored over time. Possibly functional. History of Present Illness Reason for Consultation: Hypoxic respiratory failure, cardiomyopathy Requesting Physician: [place] Attending Physician: Estrada Callahan MD History of Present Illness The patient is a 76-year-old woman without a known history of cardiac disease who was receiving chemotherapy yesterday when she had the development of acute hypoxic respiratory failure. According to the patient and her she had been somewhat dyspneic leading up to her chemotherapy that day. She noticed that walking in for chemotherapy she was more short of breath than usual. She was admittedly nervous about chemotherapy as she has had some adverse effects with the 1st to infusions. In the middle of her infusion she began to ex perience significant dyspnea and eventually developed respiratory failure requiring intubation. It appeared that she had developed pulmonary edema. Her symptoms and hypoxia resolved over the course of the evening and she was successfully extubated this morning. Currently the patient claims to be feeling well she does not report any dyspnea at this time. She has been fairly sedentary over the recent past. She generally stays close to home. She is not seem to have significant symptoms with routine activity but has not been exercising regularly. She denies any orthopnea or paroxysmal nocturnal dyspnea. No recent lower extremity edema. She denies dizziness or lightheadedness. No sense of palpitation. No symptoms of chest discomfort either at rest or with activity. Allergies Allergy/AdvReac Type Severity Reaction Status Date / Time oxycodone AdvReac Intermediate "Sick" Verified 07/19/21 16:13 feeling ("I can't eat or go the bathroom") tramadol AdvReac Intermediate "Sick" Verified 07/19/21 16:13 feeling ("I can't eat or go the bathroom") Home Medications Medication Instructions Recorded Confirmed Type cholecalciferol (vitamin D3) 25 1,000 units PO 2XWK 11/17/18 07/19/21 History mcg (1,000 unit) tablet cyanocobalamin (vitamin B-12) 1,000 mcg PO QPM tab 11/17/18 07/19/21 History 1,000 mcg tablet,extended release krill 1 cap PO QPM 11/17/18 07/19/21 History [id number] 300 mg-90 mg-24 mg-50 mg capsule (krill oil) ropinirole 0.25 mg tablet 0.5 mg PO QPM #180 tab 01/22/21 07/19/21 Rx metformin 500 mg tablet,extended 1,000 mg PO BID #360 tab 03/12/21 07/19/21 Rx release 24 hr lisinopril 20 mg tablet 20 mg PO QAM 03/21/21 07/19/21 History Accu-Chek Guide test strips (blood #100 ea NS 06/01/21 07/19/21 Rx sugar diagnostic) glimepiride 2 mg tablet 2 mg PO BID tab 06/04/21 07/19/21 History melatonin 3 mg tablet 9 mg PO HS 06/12/21 07/19/21 History Patient History Medical History Chronic insomnia CKD (chronic kidney disease), stage III Colostomy in [address] Dyslipidemia HTN (hypertension) Iron deficiency anemia HX TRANSFUSION 04/2021 [facility] [place] Osteoarthritis of left knee Osteoarthritis of right knee Pelvic mass OVARIAN CANCER Peripheral neuropathy Psoriasis Psoriatic arthritis Restless legs syndrome Right knee DJD Type 2 diabetes mellitus Surgical History H/O bilateral cataract extraction H/O colonoscopy 03/2021 History of left knee replacement History of surgery excision ovarian cancer/pelvic mass/ diverting colostomy [facility] [place] Dr. Roque.- 04/10/21 [facility] [place] History of tooth extraction Port-A-Cath in place (06/14/21) Insertion Access Port left subclavian vein with Fluoroscopy(Left) - Fracisco Lyles DO Family History Mother Brain tumor Father Kidney disease Grandmother Diabetes Other No family history of adverse response to anesthesia Denies family history of Ovarian cancer Prostate cancer Myocardial infarction Breast cancer Lung cancer Colorectal cancer Social History Smoking Status: Unknown if ever smoked Second Hand Exposure: No; Hx Alcohol Use: No Hx Substance Use: No Preferred Language: Ethiopian Communication Ability: Effective Visual Impairment: No Limitations Hearing Ability: Normal Application Integration Specialist Required: No Beliefs That Will Affect Care: None marital status: Current Living Situation: Spouse current occupational status: retired How many Children do You have: 1 Feels Safe at Home: Yes Childhood Exposure to Second-Hand Smoke: No caffeine: Yes Dental Care, Regularly: Yes Physical Activity Frequency: Does not Exercise Seatbelt Use: always Sunscreen Use: Yes Do you think of yourself as: straight/heterosexual Assistive Devices: Walker Review of Systems Review of Systems: Per HPI Physical Exam Physical Exam: She is alert and oriented x3. Mood affect appear normal. She answered all questions appropriately. HEENT: Sclerae are anicteric. Pupils are equal and reactive to light and accommodation. Extraocular movements were intact. Neuro: Cranial nerves intact Lungs: Some crackles in the right base. Normal respiratory effort. No expiratory wheezing. Cardiac: The rhythm was regular. S1 and S2 were normal. There are no murmurs on examination. The PMI was not markedly displaced on palpation. Abdomen: The abdomen was soft and nontender. Extremities: Patient has bilateral radial pulses that are equal in intensity. There is no evidence cyanosis or clubbing. There was no evidence of significant peripheral edema bilaterally. Skin: There are no rashes noted on examination today. Results & Data ([facility]) Vital Signs (Past 12 Hours) Vital Signs Temp Pulse Resp BP Pulse Ox 07/20/21 11:00 36.9 C 95 H 18 117/80 96 07/20/21 10:00 36.9 C 96 H 22 147/85 H 93 07/20/21 09:54 36.8 C 98 H 22 155/87 H 96 07/20/21 09:01 36.6 C 93 H 17 143/116 H 100 07/20/21 09:00 36.6 C 91 H 22 98 07/20/21 08:40 85 20 99 07/20/21 08:14 36.4 C L 81 20 114/79 97 07/20/21 08:08 36.4 C L 77 6 L 102/69 98 07/20/21 08:00 36.4 C L 75 18 101/68 98 07/20/21 07:25 76 18 97 07/20/21 07:00 36.5 C 76 16 100/71 98 07/20/21 06:00 36.6 C 75 18 100/64 98 07/20/21 05:50 36.6 C 75 18 98 07/20/21 05:40 36.6 C 76 18 97 07/20/21 05:30 36.6 C 74 18 97 07/20/21 05:20 36.6 C 77 18 97 07/20/21 05:10 36.6 C 74 18 97 Laboratory Results Abnormal Lab Results 07/19/21 07/19/21 07/19/21 17:38 17:42 18:01 WBC RBC Hgb Hct MCV MCH MCHC RDW Std Deviation RDW Coeff of Dolores Plt Count MPV Immature Gran % (Auto) Neut % (Auto) Lymph % (Auto) [place] % (Auto) Eos % (Auto) Baso % (Auto) Neut # (Auto) Lymph # (Auto) [place] # (Auto) Eos # (Auto) Baso # (Auto) Immature Gran # (Auto) Sample Site POC pH POC pCO2 POC pO2 POC HCO3 POC Total CO2 POC Base Excess POC ABG O2 Sat Tramaine Test O2 Delivery Device POC O2 Rate POC FiO2 Tidal Volume PEEP Sodium Potassium Chloride Carbon Dioxide Anion Gap BUN Creatinine Est Cr Clr Drug Dosing Est GFR ( Amer) Est GFR (Non-Af Amer) BUN/Creatinine Ratio Glucose POC Glucose 373 H* Estimat Average Glucose Hemoglobin A1c Lactate 4.0 H* Calcium Phosphorus Magnesium Troponin I High Sens B-Natriuretic Peptide Procalcitonin Nasal Screen MRSA (PCR) Negative 07/19/21 07/19/21 07/19/21 19:50 19:52 20:51 WBC RBC Hgb Hct MCV MCH MCHC RDW Std Deviation RDW Coeff of Dolores Plt Count MPV Immature Gran % (Auto) Neut % (Auto) Lymph % (Auto) [place] % (Auto) Eos % (Auto) Baso % (Auto) Neut # (Auto) Lymph # (Auto) [place] # (Auto) Eos # (Auto) Baso # (Auto) Immature Gran # (Auto) Sample Site R Radial POC pH 7.28 L POC pCO2 37 POC pO2 84 POC HCO3 17 L POC Total CO2 18 L POC Base Excess -10.0 L POC ABG O2 Sat 95.0 Tramaine Test Pass O2 Delivery Device Ventilator POC O2 Rate 16 POC FiO2 30 Tidal Volume 450 PEEP 5 Sodium 133 L Potassium 4.8 Chloride 105 Carbon Dioxide 16 L Anion Gap 12 H BUN 40 H Creatinine 1.40 H Est Cr Clr Drug Dosing 32.1 Est GFR ( Amer) 42.5 Est GFR (Non-Af Amer) 36.7 BUN/Creatinine Ratio 28.6 H Glucose 288 H POC Glucose 287 H Estimat Average Glucose Hemoglobin A1c Lactate Calcium 8.3 L Phosphorus Magnesium Troponin I High Sens B-Natriuretic Peptide Procalcitonin Nasal Screen MRSA (PCR) 07/19/21 07/19/21 07/19/21 20:51 20:57 22:22 WBC 7.58 RBC 3.02 L Hgb 9.1 L Hct 27.3 L MCV 90.4 MCH 30.1 MCHC 33.3 RDW Std Deviation 59.1 H RDW Coeff of Dolores 18.0 H Plt Count 154 MPV 8.4 Immature Gran % (Auto) 0.7 Neut % (Auto) 86.5 Lymph % (Auto) 7.1 [place] % (Auto) 5.7 Eos % (Auto) 0.0 Baso % (Auto) 0.0 Neut # (Auto) 6.56 H Lymph # (Auto) 0.54 L [place] # (Auto) 0.43 Eos # (Auto) 0.00 Baso # (Auto) 0.00 Immature Gran # (Auto) 0.05 H Sample Site POC pH POC pCO2 POC pO2 POC HCO3 POC Total CO2 POC Base Excess POC ABG O2 Sat Tramaine Test O2 Delivery Device POC O2 Rate POC FiO2 Tidal Volume PEEP Sodium Potassium Chloride Carbon Dioxide Anion Gap BUN Creatinine Est Cr Clr Drug Dosing Est GFR ( Amer) Est GFR (Non-Af Amer) BUN/Creatinine Ratio Glucose POC Glucose Estimat Average Glucose Hemoglobin A1c Lactate 2.5 H* Calcium Phosphorus Magnesium Troponin I High Sens 138.0 H* D B-Natriuretic Peptide Procalcitonin Nasal Screen MRSA (PCR) 07/19/21 07/20/21 07/20/21 23:06 00:03 01:00 WBC RBC Hgb Hct MCV MCH MCHC RDW Std Deviation RDW Coeff of Dolores Plt Count MPV Immature Gran % (Auto) Neut % (Auto) Lymph % (Auto) [place] % (Auto) Eos % (Auto) Baso % (Auto) Neut # (Auto) Lymph # (Auto) [place] # (Auto) Eos # (Auto) Baso # (Auto) Immature Gran # (Auto) Sample Site POC pH POC pCO2 POC pO2 POC HCO3 POC Total CO2 POC Base Excess POC ABG O2 Sat Tramaine Test O2 Delivery Device POC O2 Rate POC FiO2 Tidal Volume PEEP Sodium Potassium Chloride Carbon Dioxide Anion Gap BUN Creatinine Est Cr Clr Drug Dosing Est GFR ( Amer) Est GFR (Non-Af Amer) BUN/Creatinine Ratio Glucose POC Glucose 367 H* 333 H* 291 H Estimat Average Glucose Hemoglobin A1c Lactate Calcium Phosphorus Magnesium Troponin I High Sens B-Natriuretic Peptide Procalcitonin Nasal Screen MRSA (PCR) 07/20/21 07/20/21 07/20/21 02:01 02:04 02:04 WBC 6.69 RBC 2.91 L Hgb 8.7 L Hct 25.5 L MCV 87.6 MCH 29.9 MCHC 34.1 RDW Std Deviation 57.4 H RDW Coeff of Dolores 18.1 H Plt Count 138 MPV 8.2 Immature Gran % (Auto) 0.6 Neut % (Auto) 89.5 Lymph % (Auto) 7.8 [place] % (Auto) 2.1 Eos % (Auto) 0.0 Baso % (Auto) 0.0 Neut # (Auto) 5.99 Lymph # (Auto) 0.52 L [place] # (Auto) 0.14 Eos # (Auto) 0.00 Baso # (Auto) 0.00 Immature Gran # (Auto) 0.04 H Sample Site POC pH POC pCO2 POC pO2 POC HCO3 POC Total CO2 POC Base Excess POC ABG O2 Sat Tramaine Test O2 Delivery Device POC O2 Rate POC FiO2 Tidal Volume PEEP Sodium 132 L Potassium 4.6 Chloride 104 Carbon Dioxide 18 L Anion Gap 10 BUN 46 H Creatinine 1.48 H Est Cr Clr Drug Dosing 29.6 Est GFR ( Amer) 39.7 Est GFR (Non-Af Amer) 34.3 BUN/Creatinine Ratio 31.1 H Glucose 231 H POC Glucose 275 H Estimat Average Glucose Hemoglobin A1c Lactate Calcium 8.0 L Phosphorus 3.3 Magnesium 1.8 Troponin I High Sens 140.7 H* B-Natriuretic Peptide Procalcitonin Nasal Screen MRSA (PCR) 07/20/21 07/20/21 07/20/21 02:04 02:04 03:00 WBC RBC Hgb Hct MCV MCH MCHC RDW Std Deviation RDW Coeff of Dolores Plt Count MPV Immature Gran % (Auto) Neut % (Auto) Lymph % (Auto) [place] % (Auto) Eos % (Auto) Baso % (Auto) Neut # (Auto) Lymph # (Auto) [place] # (Auto) Eos # (Auto) Baso # (Auto) Immature Gran # (Auto) Sample Site POC pH POC pCO2 POC pO2 POC HCO3 POC Total CO2 POC Base Excess POC ABG O2 Sat Trmaaine Test O2 Delivery Device POC O2 Rate POC FiO2 Tidal Volume PEEP Sodium Potassium Chloride Carbon Dioxide Anion Gap BUN Creatinine Est Cr Clr Drug Dosing Est GFR ( Amer) Est GFR (Non-Af Amer) BUN/Creatinine Ratio Glucose POC Glucose 229 H Estimat Average Glucose 163 Hemoglobin A1c 7.3 H Lactate 1.8 Calcium Phosphorus Magnesium Troponin I High Sens B-Natriuretic Peptide Procalcitonin Nasal Screen MRSA (PCR) 07/20/21 07/20/21 07/20/21 04:05 04:08 05:56 WBC RBC Hgb Hct MCV MCH MCHC RDW Std Deviation RDW Coeff of Dolores Plt Count MPV Immature Gran % (Auto) Neut % (Auto) Lymph % (Auto) [place] % (Auto) Eos % (Auto) Baso % (Auto) Neut # (Auto) Lymph # (Auto) [place] # (Auto) Eos # (Auto) Baso # (Auto) Immature Gran # (Auto) Sample Site R Brachial POC pH 7.37 POC pCO2 28 L POC pO2 112 H POC HCO3 16 L POC Total CO2 17 L POC Base Excess -9.0 POC ABG O2 Sat 98.0 H Tramaine Test Pass O2 Delivery Device Ventilator POC O2 Rate 16 POC FiO2 30 Tidal Volume 450 PEEP 5 Sodium Potassium Chloride Carbon Dioxide Anion Gap BUN Creatinine Est Cr Clr Drug Dosing Est GFR ( Amer) Est GFR (Non-Af Amer) BUN/Creatinine Ratio Glucose POC Glucose 211 H 167 H Estimat Average Glucose Hemoglobin A1c Lactate Calcium Phosphorus Magnesium Troponin I High Sens B-Natriuretic Peptide Procalcitonin Nasal Screen MRSA (PCR) 07/20/21 07/20/21 07/20/21 07:43 07:52 08:31 WBC RBC Hgb Hct MCV MCH MCHC RDW Std Deviation RDW Coeff of Dolores Plt Count MPV Immature Gran % (Auto) Neut % (Auto) Lymph % (Auto) [place] % (Auto) Eos % (Auto) Baso % (Auto) Neut # (Auto) Lymph # (Auto) [place] # (Auto) Eos # (Auto) Baso # (Auto) Immature Gran # (Auto) Sample Site POC pH POC pCO2 POC pO2 POC HCO3 POC Total CO2 POC Base Excess POC ABG O2 Sat Tramaine Test O2 Delivery Device POC O2 Rate POC FiO2 Tidal Volume PEEP Sodium Potassium Chloride Carbon Dioxide Anion Gap BUN Creatinine Est Cr Clr Drug Dosing Est GFR ( Amer) Est GFR (Non-Af Amer) BUN/Creatinine Ratio Glucose POC Glucose 111 H 104 H Estimat Average Glucose Hemoglobin A1c Lactate Calcium Phosphorus Magnesium Troponin I High Sens 143.4 H* B-Natriuretic Peptide Procalcitonin Nasal Screen MRSA (PCR) 07/20/21 07/20/21 07/20/21 09:05 10:01 10:01 WBC RBC Hgb Hct MCV MCH MCHC RDW Std Deviation RDW Coeff of Dolores Plt Count MPV Immature Gran % (Auto) Neut % (Auto) Lymph % (Auto) [place] % (Auto) Eos % (Auto) Baso % (Auto) Neut # (Auto) Lymph # (Auto) [place] # (Auto) Eos # (Auto) Baso # (Auto) Immature Gran # (Auto) Sample Site POC pH POC pCO2 POC pO2 POC HCO3 POC Total CO2 POC Base Excess POC ABG O2 Sat Tramaine Test O2 Delivery Device POC O2 Rate POC FiO2 Tidal Volume PEEP Sodium Potassium Chloride Carbon Dioxide Anion Gap BUN Creatinine Est Cr Clr Drug Dosing Est GFR ( Amer) Est GFR (Non-Af Amer) BUN/Creatinine Ratio Glucose POC Glucose 110 H Estimat Average Glucose Hemoglobin A1c Lactate Calcium Phosphorus Magnesium Troponin I High Sens B-Natriuretic Peptide 734 H Procalcitonin 0.34 Nasal Screen MRSA (PCR) 07/20/21 07/20/21 07/20/21 10:32 16:36 16:37 WBC RBC Hgb Hct MCV MCH MCHC RDW Std Deviation RDW Coeff of Dolores Plt Count MPV Immature Gran % (Auto) Neut % (Auto) Lymph % (Auto) [place] % (Auto) Eos % (Auto) Baso % (Auto) Neut # (Auto) Lymph # (Auto) [place] # (Auto) Eos # (Auto) Baso # (Auto) Immature Gran # (Auto) Sample Site POC pH POC pCO2 POC pO2 POC HCO3 POC Total CO2 POC Base Excess POC ABG O2 Sat Tramaine Test O2 Delivery Device POC O2 Rate POC FiO2 Tidal Volume PEEP Sodium Potassium Chloride Carbon Dioxide Anion Gap BUN Creatinine Est Cr Clr Drug Dosing Est GFR ( Amer) Est GFR (Non-Af Amer) BUN/Creatinine Ratio Glucose POC Glucose 131 H 386 H* 364 H* Estimat Average Glucose Hemoglobin A1c Lactate Calcium Phosphorus Magnesium Troponin I High Sens B-Natriuretic Peptide Procalcitonin Nasal Screen MRSA (PCR) Diagnostic Findings Chest CT obtained the time admission revealed evidence of interstitial edema. Chest CT obtained this morning revealed improved edema with bilateral pleural effusions. Echocardiogram obtained today revealed severely reduced left ventricular systolic function with regional wall motion abnormalities. Moderate mitral regurgitation. ECG Additional Comments: Normal sinus rhythm with left bundle branch block PG Care Time/CCT Total # of Minutes Spent Total Time Spent with Patient: Total time spent is greater than 50% in coordination of care (as documented) at patient's floor/unit and/or counseling patient: Coding Level of Care Code 13470 Initial Inpt Care Lvl 3 Diagnoses Acute respiratory failure with hypoxia J96.01 Elevated troponin R77.8 Cardiomyopathy I42.9 Mitral regurgitation I34.0
--- NOTE | 2021-07-20 17:38 | Discharge Summary ---
Date of Service July 20, 2021 Admission HPI Per Admitting Provider 76 year old female admitted after being intubated in the cancer center by EMS due to respiratory depression and patient being unresponsive. Patient is intubated at the time of interview. History obtained by chart review and discussion with the . Patient had no new complaints prior to today's episode. Patient has a history of ovarian cancer without metastasis. She was receiving her third dose of carboplatin today. She then became unresponsive, and developed respiratory depression. Her O2 sat was 80%. She did not respond to bag valve mask and required intubation. Patient denies any fever, chills, nausea. Principal Diagnosis Acute hypoxic respiratory failure, likely due to flash pulmonary edema Discharge Exam Constitutional WD/WN, vitals as above Eyes EOM intact bilaterally; no conjunctival abnormality ENMT external ear and nose normal, oropharynx normal Neck trachea midline, no thyromegaly normal visual inspection Respiratory normal respiratory effort, lungs clear to auscultation no respiratory distress Cardiovascular RRR, no murmur, no edema Gastrointestinal (Abdomen) Inspection/Auscultation: abdomen normal to inspection; abdomen not distended Musculoskeletal no cyanosis or clubbing, extremities motor strength 5/5 Skin no rashes, warm and dry Neurologic moves all extremities and awake Psychiatric Orientation: alert, oriented to person and cooperative Discharge Data Allergies Allergy/AdvReac Type Severity Reaction Status Date / Time oxycodone AdvReac Intermediate "Sick" Verified 07/19/21 16:13 feeling ("I can't eat or go the bathroom") tramadol AdvReac Intermediate "Sick" Verified 07/19/21 16:13 feeling ("I can't eat or go the bathroom") Consultations 07/19/21 16:25 ED Decision to Admit Stat 07/19/21 17:54 Consult Medical Territory Manager Routine 07/20/21 14:29 Consult Cardiology Routine Ordered Studies 07/19/21 14:54 CT head/brain wo con Stat 07/19/21 14:55 CT angio chest PE protocol Stat 07/20/21 10:17 CT chest diagnostic wo con Routine Hospital Course (1) Acute respiratory failure with hypoxia: On 07/19, she went into hypoxic respiratory distress during her chemotherapy infusion. Had received paclitaxel, then was on carboplatin. Received Benadryl, steroids, then Ativan. Shoaib Alexandra called and patient's SpO2 was 72% on Oxymask. - Promptly intubated with good SpO2. - Extubated on 07/20. Quickly weaned to room air. - TTE showed EF 20-25% with regional wall motion abnormalities. Likely pulmonary edema from her IV infusions. She had been having symptoms of dyspnea on exertion the morning of her infusion. There was some thought that it was a chemotherapy reaction to her paclitaxel or carboplatin, but I think in the end, we think that is less likely. - On discharge, she still had some pulmonary edema and small pleural effusions, and she was discharged on Lasix 20 mg PO daily with close cardiology follow up. (2) Cardiomyopathy: Newly diagnosed. TTE showed EF 20-25% with regional wall motion abnormalities which would indicate possible ischemic cause. - Seen by Dr. Martinez. - Started metoprolol succinate 25 mg PO HS & Lasix 20 mg PO daily - Continue home lisinopril - F/u next week with cardiology. (3) CKD (chronic kidney disease), stage III: Baseline Cr ~1.2 - 1.6. At baseline. (4) Chronic anemia: hemoglobin at 9.1 will monitor (5) Ovarian cancer: being treated by cancer center. was obtaining chemotherapy paclitaxel then carboplatin as stated above. (6) Dyslipidemia: resume home meds (7) HTN (hypertension): resume bp meds (8) Type 2 diabetes mellitus: held oral meds. Blood sugars were 300, but this was in the context of steroids. Return to home meds. Total Time Total Time Spent Total Time Spent (In Minutes): 35 Discharge Plan Discharge Items Patient Disposition: Home - Self-Care Reason For Visit: ACUTE RESPIRATORY FAILURE Discharge Diagnosis: Respiratory failure from fluid in the lungs Activity: Resume your previous activity Non-emergency contact: Primary Care Provider, Circulating Nurse and Oncologist Call non-emergency contact if: your symptoms worsen Follow-up/Referrals: Haseeb Ball MD [Primary Care Provider] - Meng Martinez MD [Physician] - (Please see Dr. Martinez or one of his colleagues next week.) Brenda Solorio MD [Physician] - (Please see Dr. Solorio in 1-2 weeks to follow up on your cancer care.) Diet: Carb Consistent or DM2, Heart Healthy and Low Sodium (2gm) Addtl Attending Provider Instructions: Mr. Davidson, You were admitted acutely to the hospital when you went into respiratory failure. We think this may have been from a chemotherapy agent. Your CT scan of your lungs looked good, and we did not see any blood clots in your lungs. There was some fluid in the lungs, but this is improving. Please hold your metformin until Friday. The echo of your heart unfortunately showed that your heart is not squeezing as well as it should. It's not entirely clear why, but you may have had a silent heart attack in the past. Dr. Martinez (the ship's cook) saw you and has made some recommendations to try to strengthen your heart. Please see Dr. Solorio in 1-2 weeks to follow up on your cancer care. Please see Dr. Martinez or one of his colleagues next week to follow up on your heart. Pending Studies at Discharge: No Stand-Alone Forms: My [facility] [employer], Smoking Cessation Medications and DC Order Prescriptions: New metoprolol succinate 25 mg tablet extended release 24 hr 25 mg PO HS Qty: 30 RF: 0 furosemide 20 mg tablet 20 mg PO DAILY Qty: 30 RF: 0 Continued ropinirole 0.25 mg tablet 0.5 mg PO QPM Qty: 180 RF: 1 metformin 500 mg tablet extended release 24 hr 1,000 mg PO BID Qty: 360 RF: 3 (DME) Accu-Chek Guide test strips Strip See Rx Instructions .ROUTE .MEDSUPPLY Qty: 100 RF: 3 glimepiride 2 mg tablet 2 mg PO BID RF: 0 Hold Instructions: Now on Trulicity [id number] [krill oil] [id number] mg capsule 1 cap PO QPM RF: 0 cholecalciferol (vitamin D3) 1,000 unit (25 mcg) tablet 1,000 units PO 2XWK RF: 0 cyanocobalamin (vitamin B-12) 1,000 mcg tablet extended release 1,000 mcg PO QPM RF: 0 lisinopril 20 mg tablet 20 mg PO QAM RF: 0 Hold Instructions: low bp melatonin 3 mg Tablet 9 mg PO HS RF: 0 Discharge Orders: Discharge Order (Routine); Ordered 07/20/21 Ordered By: Estrada Callahan Admission Data Admit Date/Time: 07/19/21 17:54 Attending Provider: Estrada Callahan Admit Provider: John Castro Primary Care Provider: Haseeb Ball Other Providers: Estrada Callahan ; John Castro ; Trace Lemus ; Meng Martinez Coding Level of Care Code D/C DAY MANAGEMENT >30 MINS Diagnoses Acute respiratory failure with hypoxia J96.01 CKD (chronic kidney disease), stage III N18.30 Chronic kidney disease stage 3 subtype: unspecified whether 3a or 3b Chronic anemia D64.9 Ovarian cancer C56.9 Dyslipidemia E78.5 HTN (hypertension) I10 Hypertension type: essential hypertension Type 2 diabetes mellitus E11.9 Diabetes mellitus termite inspector insulin use: without halfway use Diabetes mellitus complication status: without complication Cardiomyopathy I42.9
[2021-07-20] MEDS ORDERED: INSULIN ASPART PER UNIT SC STA (17:54)
--- NOTE | 2021-07-20 17:58 | Electrocardiogram Report ---
Test Reason : Blood Pressure : / mmHG Vent. Rate : 105 BPM Atrial Rate : 105 BPM P-R Int : 154 ms QRS Dur : 138 ms QT Int : 374 ms P-R-T Axes : 080 090 236 degrees QTc Int : 494 ms Sinus tachycardia Rightward axis Non-specific intra-ventricular conduction delay Abnormal ECG Confirmed by Meng Martinez ([id number]) on 07/20/2021 5:58:36 PM Referred By: REFERRED SELF Confirmed By:Pablo Martinez
--- NOTE | 2021-07-20 18:09 | Electrocardiogram Report ---
Test Reason : Blood Pressure : / mmHG Vent. Rate : 082 BPM Atrial Rate : 082 BPM P-R Int : 154 ms QRS Dur : 130 ms QT Int : 448 ms P-R-T Axes : 056 -04 197 degrees QTc Int : 523 ms Normal sinus rhythm Left bundle branch block Abnormal ECG When compared with ECG of 19-JUL-2021 14:56, (unconfirmed) Questionable change in QRS axis T wave inversion more evident in Lateral leads Confirmed by Meng Martinez ([id number] on 07/20/2021 6:08:47 PM Referred By: REFERRED SELF Confirmed By:Pablo Martinez
== END 2021-07-20 18:44 | disposition home health service (06) | DRG 208 ==
LOC: ED 14:48 → SUATTDRO 17:54 → 1E 17:54